=== PATIENT | female | born 1940 | race Caucasian/White ===

== ENCOUNTER 2022-03-09 12:04 | Day surgery (SDC) | payer MEDICARE ==
[2022-03-09] MEDS ORDERED: LIDOCAINE HCL 1% 50 MG/5 ML VL PF IJ ONE (12:05)
[2022-03-09] MEDS ORDERED: Depo-Medrol 40 MG/ML IM ONE (12:05)
[2022-03-09] MEDS ORDERED: BUPIVACAINE 0.5% VIAL IJ ONE (12:05)
--- NOTE | 2022-03-09 15:11 | XRAY ---
Indication: Left knee injection. Intraoperative fluoroscopy provided for 4 seconds. Single digital spot image submitted for interpretation demonstrates needle tip projecting over the left femur intracondylar notch. Small amount of contrast injected for needle tip placement. Correlate with intraoperative findings/report.
--- NOTE | 2022-03-09 15:12 | XRAY ---
Indication: Right knee injection. Intraoperative fluoroscopy provided for 9 seconds. Single digital spot image submitted for interpretation demonstrates needle tip projecting over the right femur intracondylar notch. Small amount of contrast injected for needle tip placement. Correlate with intraoperative findings/report.
--- NOTE | 2022-03-09 15:13 | XRAY ---
9 seconds of fluoroscopy was used in surgery for a right intra-articular knee injection.
--- NOTE | 2022-03-09 15:14 | XRAY ---
4 seconds of fluoroscopy was used in surgery for a left intra-articular knee injection.
== END 2022-03-09 14:40 | disposition home or self-care (01) ==
LOC: SDC-PAIN 12:04
PROVIDERS: ATTEND Psychiatry & Neurology Pain Medicine
DX: M17.0 Bilateral primary osteoarthritis of knee (principal); Z79.899 Other long term (current) drug therapy
CPT/HCPCS: 20610; 73560; 77002; J1030; J2001; Q9966

== ENCOUNTER 2022-10-07 12:45 | Emergency (ER) | payer MEDICARE ==
[2022-10-07 12:55] VITALS: TEMP 97.2
--- NOTE | 2022-10-07 14:14 | XRAY ---
Indication: Injury following fall. Comparison: None 3 view left elbow demonstrates 5 mm well-circumscribed heterotopic ossification posterior to olecranon process and mild focal posterior soft tissue swelling. No other bony, articular, or soft tissue abnormalities.
--- NOTE | 2022-10-07 14:16 | XRAY ---
Indication: Head injury following fall. Multiple contiguous axial images obtained through the head without contrast. Comparison: None Age-appropriate global atrophy, mild periventricular degenerative micro-ischemia bilaterally, and bilateral thalamic remote lacunar infarcts. No acute intracranial hemorrhage, abnormal extra axial fluid collection, or mass effect. Fourth ventricle is midline without hydrocephalus. Small right occipital scalp hematoma. Bony calvarium intact. Visualized paranasal sinuses and mastoid air cells are clear. Impression: 1. Right occipital scalp hematoma. No underlying fracture or acute intracranial abnormalities. 2. Chronic findings including atrophy, degenerative micro-ischemia, and bilateral thalamic remote lacunar infarcts.
--- NOTE | 2022-10-07 14:20 | XRAY ---
Indication: Neck pain and head injury following fall. Multiple contiguous axial images obtained through the cervical spine. Sagittal and coronal reformatted images obtained. Comparison: None Axial images negative for acute fracture, suspicious bony lesions, or spinal canal stenosis. Elsewhere osteopenia, moderate/advanced atlantoaxial degenerative changes, minimal/mild C4-C7 degenerative changes, and moderate multilevel bilateral degenerative facet arthropathy. Sagittal and coronal reformatted images demonstrates lordotic straightening, positional versus paraspinal spasm. Mild C5-C7 disc space narrowing. No acute compression fracture, subluxation, or jumped facet. Normal appearing craniocervical junction. Visualized noncontrasted soft tissues demonstrates mild scattered bilateral carotid calcifications. Lung apices clear. Impression: 1. Cervical lordotic straightening, positional versus paraspinal spasm. 2. Negative acute fracture/subluxation. 3. Chronic findings including osteopenia, multilevel degenerative spondylosis, and bilateral carotid calcifications.
[2022-10-07 14:27] VITALS: BP 149/70; PULSE 57; RESP 18; O2SAT 96
--- NOTE | 2022-10-07 14:44 | ERPHSYRPT ---
- History of Present Illness Time Seen by Provider: 10/07/22 12:55 Source: patient Exam Limitations: no limitations Patient Subjective Stated Complaint: PT states "I was stepping up on the curb and hit the back of my head and it hurts." Triage Nursing Assessment: Pt presented alert and oriented X 3, skin pwd. Pt ablet to speak in clear full sentences. PT has laceration noted to posterior head, abreasion noted to left elbow. PT has c spine on Physician History: Patient is a 82-year-old white female who slipped and fell in a parking lot when she attempted to step over a curb. She hit the back of her head but did not have any loss of consciousness she also abraded her left elbow. She is on Plavix as a blood thinner. She arrived by ambulance with a cervical collar in place Occurred: just prior to arrival Reason for Fall: tripped Injuries/Pain Location: head, upper extremity (Left elbow) Loss of Consciousness: no loss of consciousness Quality: aching Severity of Pain-Max: mild Severity of Pain-Current: mild Allergies/Adverse Reactions: No Known Drug Allergies Allergy (Verified 10/07/22 12:54) Home Medications: Gabapentin [Neurontin] 300 mg PO DAILY 10/07/22 [History] Hydrochlorothiazide 25 mg [hydroDIURIL 25 MG] 25 mg PO DAILY 10/07/22 [History] RX: Amlodipine Besylate 2.5 mg PO DAILY 10/07/22 [History] Hx Tetanus, Diphtheria Vaccination/Date Given: No Hx Influenza Vaccination/Date Given: No Hx Pneumococcal Vaccination/Date Given: No Immunizations Up to Date: No Travel Risk - International Travel Have you traveled outside of the country in past 3 weeks: No - Coronavirus Screening Are you exhibiting any of the following symptoms?: No Close contact with a COVID-19 positive Pt in past 14-21 Days: No - Vaccine Status Have you recieved a Covid-19 vaccination: No - Review of Systems Constitutional: No Fever, No Chills Eyes: No Symptoms Ears, Nose, & Throat: No Symptoms Respiratory: No Cough, No Dyspnea Cardiac: No Chest Pain, No Edema, No Syncope Abdominal/Gastrointestinal: No Abdominal Pain, No Nausea, No Vomiting, No Diarrhea Genitourinary Symptoms: No Dysuria Musculoskeletal: Joint Pain, Joint Swelling, No Back Pain, No Neck Pain Skin: No Rash Neurological: No Dizziness, No Focal Weakness, No Sensory Changes Psychological: No Symptoms Endocrine: No Symptoms All Other Systems: Reviewed and Negative - Past Medical History Pertinent Past Medical History: Yes Neurological History: Stroke, TIA Cardiac History: Hypertension Respiratory History: COPD Endocrine Medical History: Hypothyroidism Musculoskeletal History: Osteoarthritis Other Medical History: 3 TIA, 1 CVA, BREAST CA, RADICAL MASECTOMY. - Past Surgical History Past Surgical History: Yes Other Surgical History: left masectomy - Social History Smoking Status: Current every day smoker How long have you smoked: years Exposure to second hand smoke: Yes Drug Use: none Patient Lives Alone: Yes - Nursing Vital Signs Nursing Vital Signs: Initial Vital Signs Temperature 97.2 F 10/07/22 12:45 Pulse Rate 58 L 10/07/22 12:45 Respiratory Rate 20 10/07/22 12:45 Blood Pressure 172/75 10/07/22 12:45 O2 Sat by Pulse Oximetry 97 10/07/22 12:45 Pain Scale Pain Intensity 5 - [place] Coma Score Best Eye Response ([place]): (4) open spontaneously Best Verbal Response ([place]): (5) oriented Best Motor Response ([place]): (6) obeys commands [place] Total: 15 - Physical Exam General Appearance: mild distress, alert Head Injury: contusions (Occipital contusion and overlying abrasion) Eye Exam: PERRL/EOMI ENT Exam: airway nml Neck Exam: normal inspection, No tenderness Respiratory/Chest Exam: normal breath sounds, No chest tenderness, No respiratory distress Cardiovascular Exam: normal heart sounds, regular rate/rhythm Gastrointestinal Exam: soft, No tenderness, No distention, No guarding, No ecchymosis Back Exam: normal inspection, No vertebral tenderness Extremity Exam: normal inspection, normal range of motion, pelvis stable, other (Abrasion to the left elbow full range of motion), No deformities Neurologic Exam: alert, oriented x 3, cooperative, sensation nml, No motor deficits Skin Exam: normal color, warm, dry SpO2: 96 - Course Nursing assessment & vital signs reviewed: Yes - Radiology Exams Left Elbow X-ray Interpretation: Reviewed by me, Negative, Other - CT Exams Head CT Interpretation: Negative Cervical Spine CT Interpretation: Negative Ordered Tests: Active Orders 24 hr Category Date Time Status CERVICAL SPINE WO CONTRAST [CT] Stat Exams 10/07/22 12:50 Completed ELBOW (MINIMUM 3 VIEWS) Stat Exams 10/07/22 12:51 Completed HEAD WITHOUT CONTRAST [CT] Stat Exams 10/07/22 12:50 Completed - Progress Progress: improved Medical Desision Making - Diagnostic Testing Radiological Interpretation: Reviewed by me - Risk of complications Low Risk: Low risk of morbidity from additional dx testing or treatment - Departure Departure Disposition: Home Clinical Impression: Fall, Contusion of occipital region of scalp, Contusion of left elbow Condition: Stable Referrals: GRAY SCHULER MD [Primary Care Provider] - Follow up/PCP as directed Instructions: Contusion (DC), Preventing falls in adults Prescriptions: Hydrocodone/Acetaminophen [Hydrocodone-Acetamin 5-325 mg] 1 tab PO Q6HPRN PRN 3 Days #12 tablet MDD 4 PRN Reason: Pain
== END 2022-10-07 15:34 | disposition home or self-care (01) ==
LOC: ED 12:45
DX: S00.03XA Contusion of scalp, initial encounter (principal); S50.02XA Contusion of left elbow, initial encounter; W10.1XXA Fall (on)(from) sidewalk curb, initial encounter; Y92.481 Parking lot as the place of occurrence of the external cause; I10 Essential (primary) hypertension; Z79.02 Long term (current) use of antithrombotics/antiplatelets; Z79.891 Long term (current) use of opiate analgesic; Z79.899 Other long term (current) drug therapy; Z28.310 Unvaccinated for COVID-19; Z72.0 Tobacco use
CPT/HCPCS: 70450; 72125; 73080; 99283

== ENCOUNTER 2022-12-29 16:14 | Inpatient (IN) | payer MEDICARE ==
--- NOTE | 2022-12-29 16:20 | ERPHSYRPT ---
- History of Present Illness Time Seen by Provider: 12/29/22 16:20 Historian: patient, other (Outpatient radiographic study records) Exam Limitations: no limitations Physician History: This is an 82-year-old white female patient who was told to come to the emergency department by the office of Dr. Schuler because of abnormal finding on her CT scan of the abdomen pelvis that was ordered a week ago or so and was scheduled for earlier today. The CAT scan of the abdomen pelvis was interpreted by the radiologist and the impression reads abnormal prominent appendix with p eriappendiceal stranding worrisome for acute appendicitis. No complications. There is also small hiatal hernia colonic diverticulosis and arteriosclerotic disease without abdominal aortic aneurysm. The patient states that she does have pain in the right lower quadrant to palpation. Her pain was worse approximately 1 week ago then it improved. She denies nausea and vomiting. She has not had diarrhea. Patient reports that at approximately 4 PM, she had a couple of sips of orange juice but no solid food today. Timing/Duration: worse Allergies/Adverse Reactions: No Known Drug Allergies Allergy (Verified 12/29/22 16:36) Home Medications: Gabapentin [Neurontin] 300 mg PO TID 10/07/22 [History] Hydrochlorothiazide 25 mg [hydroDIURIL 25 MG] 25 mg PO DAILY 10/07/22 [History] Alendronate Sodium 70 mg [Fosamax 70 MG] 70 mg PO Q7D@0600 12/29/22 [History] Aspirin EC 81 mg [Ecotrin 81 mg] 81 mg PO DAILY 12/29/22 [History] Atorvastatin Calcium [Lipitor] 20 mg PO DAILY 12/29/22 [History] Bupropion HCl Xl 150 mg [Wellbutrin XL 150 MG] 300 mg PO DAILY 12/29/22 [History] Celecoxib 200 mg PO DAILY 12/29/22 [History] Clopidogrel Bisulfate [Clopidogrel] 75 mg PO DAILY 12/29/22 [History] Donepezil HCl [Aricept] 5 mg PO DAILY 12/29/22 [History] Enalapril Maleate 10 mg [Vasotec 10 MG] 20 mg PO BID 12/29/22 [History] Levothyroxine Sodium 150 Mcg [Synthroid 150 Mcg] 150 mcg PO DAILY 12/29/22 [History] Sertraline HCl [Zoloft] 100 mg PO DAILY 12/29/22 [History] atenoloL [Atenolol] 25 mg PO BID 12/29/22 [History] clonazePAM 0.5 mg PO TID PRN 12/29/22 [History] dilTIAZem HCL [Diltiazem 24Hr ER] 120 mg PO HS 12/29/22 [History] Hx Tetanus, Diphtheria Vaccination/Date Given: No Hx Influenza Vaccination/Date Given: No Hx Pneumococcal Vaccination/Date Given: No Travel Risk - Vaccine Status Have you recieved a Covid-19 vaccination: No - Past Medical History Pertinent Past Medical History: Yes Neurological History: Stroke, TIA Cardiac History: Hypertension Respiratory History: COPD Endocrine Medical History: Hypothyroidism Musculoskeletal History: Osteoarthritis Other Medical History: 3 TIA, 1 CVA, BREAST CA, RADICAL MASECTOMY. - Past Surgical History Past Surgical History: Yes Other Surgical History: left masectomy - Social History Smoking Status: Current every day smoker How long have you smoked: years Exposure to second hand smoke: Yes Drug Use: none Patient Lives Alone: Yes - Nursing Vital Signs Nursing Vital Signs: Initial Vital Signs Temperature 98.5 F 12/29/22 16:28 Pulse Rate 57 L 12/29/22 16:28 Respiratory Rate 18 12/29/22 16:28 Blood Pressure 148/66 12/29/22 16:28 O2 Sat by Pulse Oximetry 95 12/29/22 16:28 Pain Scale Pain Intensity 0 Ordered Tests: Active Orders 24 hr Category Date Time Status EKG-ER Only STAT Care 12/29/22 16:35 Active IV Insertion STAT Care 12/29/22 16:35 Active CBC W DIFF Stat Lab 12/29/22 16:40 Completed CMP Stat Lab 12/29/22 16:40 Completed Transfer Order Routine Transfer 12/29/22 Ordered Medication Summary Generic Name Dose Route Start Last Admin Trade Name Freq PRN Reason Stop Dose Admin Piperacillin Sod/Tazobactam 100 mls @ 200 mls/hr 12/29/22 17:56 Sod 3.375 gm/ Sodium Chloride IV 12/29/22 18:25 STAT ONE Discontinued Medications Generic Name Dose Route Start Last Admin Trade Name Freq PRN Reason Stop Dose Admin Hydromorphone HCl 0.5 mg 12/29/22 17:56 Hydromorphone 1 Mg/1ml Inj IV 12/29/22 17:57 STAT ONE Sodium Chloride 1,000 mls @ 999 mls/hr 12/29/22 16:35 12/29/22 16:40 Sodium Chloride 0.9% 1000 Ml IV 12/29/22 17:35 999 mls/hr .Q1H1M STA Administration Sodium Chloride Confirm 12/29/22 16:39 Sodium Chloride 0.9% 1000 Ml Administered 12/29/22 16:40 Dose 1,000 mls @ ud .ROUTE .STK-MED ONE Ondansetron HCl 4 mg 12/29/22 17:56 Ondansetron Hcl 4 Mg/2 Ml Vial IV 12/29/22 17:57 STAT ONE Lab/Rad Data: Laboratory Result Diagrams 12/29/22 16:40 12/29/22 16:40 Laboratory Results 12/29/22 12/29/22 Range/Units 16:40 16:40 WBC 7.2 (4.0-10.5) x10^3/uL RBC 3.78 L (4.1-5.4) x10^6/uL Hgb 11.9 L (12.0-16.0) g/dL Hct 36.0 (35-47) % MCV 95.2 (78-100) fL MCH 31.5 (26-32) pg MCHC 33.1 (32-36) g/dL RDW 12.2 (11.5-14.0) % Plt Count 307 (150-450) x10^3/uL MPV 11.2 H (7.5-11.0) fL Gran % 62.9 (36.0-66.0) % Immature Gran % (Auto) 0.4 (0.00-0.4) % Nucleat RBC Rel Count 0.0 (0.00-0.1) % Eos # (Auto) 0.16 (0-0.5) x10^3/uL Immature Gran # (Auto) 0.03 (0.00-0.03) x10^3u/L Absolute Lymphs (auto) 1.92 (1.0-4.6) x10^3/uL Absolute Monos (auto) 0.52 (0.0-1.3) x10^3/uL Absolute Nucleated RBC 0.00 (0.00-0.01) x10^3u/L Lymphocytes % 26.5 (24.0-44.0) % Monocytes % 7.2 (0.0-12.0) % Eosinophils % 2.2 (0.00-5.0) % Basophils % 0.8 (0.0-0.4) % Absolute Granulocytes 4.55 (1.4-6.9) x10^3/uL Basophils # 0.06 (0-0.4) x10^3/uL Sodium 141 (137-145) mmol/L Potassium 3.9 (3.5-5.1) mmol/L Chloride 106 (98-107) mmol/L Carbon Dioxide 26 (22-30) mmol/L Anion Gap 13.4 (5-15) MEQ/L BUN 27 H (7-17) mg/dL Creatinine 0.86 (0.52-1.04) mg/dL Estimated GFR 66.6 ML/MIN Glucose 106 (74-106) mg/dL Calcium 9.1 (8.4-10.2) mg/dL Total Bilirubin 0.50 (0.2-1.3) mg/dL AST 24 (14-36) U/L ALT 19 (0-35) U/L Alkaline Phosphatase 110 (38-126) U/L Serum Total Protein 7.5 (6.3-8.2) g/dL Albumin 4.2 (3.5-5.0) g/dL - Progress Progress: improved, pain not gone completely, re-examined Progress Note: 12/29/22 18:02 This patient's medical issue is 1 of moderate complexity. Level complex in the work-up performed is based on review of the patient's past medical history, review the patient's medication list, review the patient's drug allergy list, history of present illness and physical findings on examination. The work-up in this patient includes placement of intravenous line, infusion of 1 L normal saline solution, obtaining CBC, CMP, twelve-lead EKG. We will also provide the patient with 3.375 g of intravenous Zosyn, half a milligram of intravenous Dilaudid, 4 mg of intravenous Zofran. CAT scan of the abdomen pelvis was already performed as an outpatient and I reviewed the radiologist interpretation. I also reported the impression to Derrick Lara, general surgeon that is on-call at this time. I also reviewed the laboratory results with him. He will perform the surgery. However, he wishes the hospitalist to admit. I will call the telehospitalist on-call. 12/29/22 18:14 I spoke with the telehospitalist on-call at this time and it was Dr. Ferraro. He accepts the patient to be placed in observation. However, he did request that I put an order to call Dr. Ramirez or who will be taking over for him when the patient gets to the floor. Discussed with .: Sergey Counseled pt/family regarding: lab results, diagnosis, rad results Medical Desision Making - Discussion of managment Care discussed with:: specialist (General surgeon Dr. Derrick Lara) Reviewed:: Test results, Need for additional workup Agreed on:: place in obs - Diagnostic Testing Diagnostic test were ordered, analyzed, and reviewed by me: Yes Radiological Interpretation: Reviewed by me, Teleradiologist Report - Risk of complications The pt has a high risk of morbidity or mortality based on: Decision regarding hospitilization or escalation of hosp level of care - Departure Departure Disposition: Observation Clinical Impression: Acute appendicitis Condition: Stable Critical Care Time: No Referrals: GRAY SCHULER MD [Primary Care Provider] - Follow up/PCP as directed
[2022-12-29] MEDS ORDERED: Sodium Chloride 0.9% 1000 ML 1,000 ML IV STA (16:35)
[2022-12-29] MEDS ORDERED: Sodium Chloride 0.9% 1000 ML 1,000 ML ONE (16:39)
[2022-12-29 16:49] LABS: Absolute Neutrophil Ct (ANC) 4.55 x10^3/uL (1.4-6.9); BASOPHIL % 0.8 % (0.0-0.4); Basophil (Absolute #) 0.06 x10^3/uL (0-0.4); Eosinophil % 2.2 % (0.00-5.0); Eosinophil (Absolute #) 0.16 x10^3/uL (0-0.5); Hemoglobin 11.9 g/dL (12.0-16.0); IMMATURE GRAN # 0.03 x10^3u/L (0.00-0.03); IMMATURE GRAN % 0.4 % (0.00-0.4); Lymphocyte (Absolute #) 1.92 x10^3/uL (1.0-4.6); Lymphocytes % 26.5 % (24.0-44.0); Mean Cell Volume 95.2 fL (78-100); Mean Corpuscular Hemoglobin 31.5 pg (26-32); Mean Corpuscular Hgb Concent. 33.1 g/dL (32-36); Mean Platelet Volume 11.2 fL (7.5-11.0); Monocyte (Absolute #) 0.52 x10^3/uL (0.0-1.3); Monocytes % 7.2 % (0.0-12.0); Neutrophil % 62.9 % (36.0-66.0); Platelet Count 307 x10^3/uL (150-450); Red Blood Count 3.78 x10^6/uL (4.1-5.4); Red Cell Distribution Width 12.2 % (11.5-14.0); White Blood Count 7.2 x10^3/uL (4.0-10.5)
[2022-12-29 17:04] LABS: ALBUMIN 4.2 g/dL (3.5-5.0); ANION GAP 13.4 MEQ/L (5-15); BILIRUBIN,TOTAL 0.5 mg/dL (0.2-1.3); Calcium 9.1 mg/dL (8.4-10.2); Creatinine 1 0.86 mg/dL (0.52-1.04); EST GLOMERULAR FILTRATION RATE 66.6 ML/MIN; Potassium 3.9 mmol/L (3.5-5.1); Total Protein 7.5 g/dL (6.3-8.2)
[2022-12-29] MEDS ORDERED: Zofran 4 MG/2 ML VIAL IV ONE (17:56)
[2022-12-29] MEDS ORDERED: Hydromorphone 1 mg/ml Injection IV ONE (17:56)
[2022-12-29] MEDS ORDERED: PIPERACILLIN/TAZOBACTAM 3.375 GM in Sodium Chloride 100ML MINI-BAG PLUS 100 ML IV ONE (17:56)
[2022-12-29] MEDS ORDERED: Zofran 4 MG/2 ML VIAL ONE ×2 (18:17→19:07)
[2022-12-29] MEDS ORDERED: Hydromorphone 1 mg/ml Injection ONE (18:17)
[2022-12-29] MEDS ORDERED: PIPERACILLIN/TAZOBACTAM IV ONE (18:18)
[2022-12-29] MEDS ORDERED: Sodium Chloride 100ML MINI-BAG PLUS 100 ML IV ONE (18:19)
[2022-12-29] MEDS ORDERED: Sensorcaine 0.25% 10 ML ONE (18:39)
[2022-12-29] MEDS ORDERED: OFIRMEV 100 ML IV ONE (19:02)
[2022-12-29] MEDS ORDERED: Decadron 4 MG INJ ONE (19:07)
[2022-12-29] MEDS ORDERED: Xylocaine-Mpf 2% 5 Ml Vial ONE (19:07)
[2022-12-29] MEDS ORDERED: BRIDION 200MG/2ML IV ONE (19:07)
[2022-12-29] MEDS ORDERED: Zemuron 100 MG/10 ML ONE (19:07)
[2022-12-29] MEDS ORDERED: SUBLIMAZE 100 MCG/2 ML ONE ×2 (19:09→21:05)
[2022-12-29] MEDS ORDERED: Lactated Ringers 1,000 ML IV ONE ×2 (19:17→19:51)
[2022-12-29] MEDS ORDERED: DIPRIVAN 200 MG/20 ML IV ONE (19:25)
[2022-12-29] MEDS ORDERED: Pre-Attached Lta Kit TP ONE (19:29)
[2022-12-29] MEDS ORDERED: ATROPINE SULFATE 1MG ONE (19:43)
[2022-12-29] MEDS ORDERED: Ephedrine Sulfate 50 MG/ML ONE (19:47)
[2022-12-29] MEDS ORDERED: Reglan 10 MG/2 ML ONE (19:51)
[2022-12-29] MEDS ORDERED: Sodium Chloride 3 ML UD NEBULES IH ONE (21:00)
[2022-12-29] MEDS ORDERED: Xopenex 1.25 MG/0.5 ML UD NEBULE IH ONE (21:00)
[2022-12-29] MEDS ORDERED: Zofran 4 MG/2 ML VIAL IV PRN (22:08)
[2022-12-29] MEDS ORDERED: Lactated Ringers 1,000 ML IV SCH (22:30)
[2022-12-29] MEDS ORDERED: clonazePAM PO PRN (23:34)
[2022-12-29] MEDS ORDERED: TYLENOL 325 MG PO PRN (23:36)
[2022-12-29] MEDS ORDERED: Docusate Sodium 100 MG PO PRN (23:36)
[2022-12-30] MEDS: MORPHINE SULFATE 4 MG INJ IV PRN ×2 (00:07→05:09)
--- NOTE | 2022-12-30 00:17 | PCM.HP ---
History of Present Illness - Chief Complaint Chief Complaint: lap appy Date: 12/29/22 History of Present Illness: is a 82 year old female patient who was called back to the ED after a finding on abdominal CT ordered 1 week ago scheduled for completion earlier today, which revealed concerns for appendicitis. The patient had reported right lower quadrant abdominal pain which was worse in intensity 1 week ago and was improved, but persistent. There was no report of nausea, vomiting, diarrhea or fever. The patient was evaluated in the ED and underwent laparoscopic appendectomy, which revealed evidence of a perforation. The patient was evaluated on the med surg floor postoperatively. She is able to answer yes or no questions but is not able to offer meaningful history otherwise. - Review of Systems Constitutional: No Symptoms Eyes: No Symptoms Ears, Nose, & Throat: No Symptoms Respiratory: No Symptoms Cardiac: No Symptoms Abdominal/Gastrointestinal: Abdominal Pain Genitourinary Symptoms: No Symptoms Musculoskeletal: No Symptoms Skin: No Symptoms Neurological: No Symptoms Psychological: No Symptoms Endocrine: No Symptoms Hematologic/Lymphatic: No Symptoms Immunological/Allergic: No Symptoms All Other Systems: Reviewed and Negative Medications & Allergies Home Medications: Home Medication List Gabapentin [Neurontin] 300 mg PO TID 10/07/22 [History Confirmed 12/29/22] Hydrochlorothiazide 25 mg [hydroDIURIL 25 MG] 25 mg PO DAILY 10/07/22 [History Confirmed 12/29/22] Oxycodone HCl/Acetaminophen [Percocet 5-325 mg Tablet] 1 each PO Q6H 3 Days #12 tablet MDD 4 10/07/22 [Rx Confirmed 12/29/22] Alendronate Sodium 70 mg [Fosamax 70 MG] 70 mg PO Q7D@0600 12/29/22 [History Confirmed 12/29/22] Aspirin EC 81 mg [Ecotrin 81 mg] 81 mg PO DAILY 12/29/22 [History Confirmed 12/29/22] Atorvastatin Calcium [Lipitor] 20 mg PO DAILY 12/29/22 [History Confirmed 12/29/22] Bupropion HCl Xl 150 mg [Wellbutrin XL 150 MG] 300 mg PO DAILY 12/29/22 [History Confirmed 12/29/22] Celecoxib 200 mg PO DAILY 12/29/22 [History Confirmed 12/29/22] Clopidogrel Bisulfate [Clopidogrel] 75 mg PO DAILY 12/29/22 [History Confirmed 12/29/22] Donepezil HCl [Aricept] 5 mg PO DAILY 12/29/22 [History Confirmed 12/29/22] Enalapril Maleate 10 mg [Vasotec 10 MG] 20 mg PO BID 12/29/22 [History Confirmed 12/29/22] Levothyroxine Sodium 150 Mcg [Synthroid 150 Mcg] 150 mcg PO DAILY 12/29/22 [History Confirmed 12/29/22] Sertraline HCl [Zoloft] 100 mg PO DAILY 12/29/22 [History Confirmed 12/29/22] atenoloL [Atenolol] 25 mg PO BID 12/29/22 [History Confirmed 12/29/22] clonazePAM 0.5 mg PO TID PRN 12/29/22 [History Confirmed 12/29/22] dilTIAZem HCL [Diltiazem 24Hr ER] 120 mg PO HS 12/29/22 [History Confirmed 12/29/22] Allergies/Adverse Reactions: Allergies Allergy/AdvReac Type Severity Reaction Status Date / Time No Known Drug Allergies Allergy Verified 12/29/22 16:36 - Past Medical History Past Medical History: Yes Neurological History: Stroke, TIA Cardiac History: Hypertension Respiratory History: COPD Endocrine Medical History: Hypothyroidism Musculoskelatal History: Osteoarthritis Pyscho-Social History: Anxiety, Depression Comment: 3 TIA, 1 CVA, BREAST CA, RADICAL MASECTOMY. - Female History Are you now?: No - Past Surgical History Past Surgical History: Yes Neuro Surgical History: No Pertinent History Cardiac History: No Pertinent History Respiratory Surgery: No Pertinent History GI Surgical History: Appendectomy Genitourinary Surgical Hx: No Pertinent History Musculskeletal Surgical Hx: Orthopedic Surgery Female Surgical History: No Pertinent History Other Surgical History: left masectomy - Social History Smoking Status: Unknown if ever smoked How long have you smoked: years Exposure to second hand smoke: Yes Alcohol: None Drug Use: none - Physical Exam Vital Signs: Vital Signs - 24 hr Temp Pulse Resp BP BP BP Pulse Ox 12/29/22 23:15 55 L 19 141/63 98 12/29/22 22:45 98.0 F 57 L 18 148/57 98 12/29/22 22:15 55 L 20 141/63 98 12/29/22 22:00 97.1 F 63 20 139/67 95 12/29/22 21:00 61 18 96 12/29/22 18:16 98.5 F 78 18 133/63 95 12/29/22 17:30 78 18 147/70 12/29/22 17:14 60 18 133/63 95 12/29/22 17:09 133/63 95 12/29/22 17:08 95 12/29/22 16:28 98.5 F 57 L 18 148/66 95 General Appearance: no apparent distress Neurologic Exam: alert, oriented x 3, cooperative, pen ruler operator II-XII nml as tested, normal mood/affect Eye Exam: PERRL/EOMI, eyes nml inspection Ears, Nose, Throat Exam: normal ENT inspection Neck Exam: normal inspection, non-tender, full range of motion Respiratory Exam: normal breath sounds, lungs clear Cardiovascular Exam: regular rate/rhythm, normal heart sounds Gastrointestinal/Abdomen Exam: soft, other (decreased bowel sounds in left quadrants. RLQ not palpated, currently in dressing.) Back Exam: normal range of motion Extremity Exam: normal inspection, normal range of motion Skin Exam: normal color Results - Labs Lab/Micro Results: Lab Results-Last 24 Hours 12/29/22 12/29/22 Range/Units 16:40 16:40 WBC 7.2 (4.0-10.5) x10^3/uL RBC 3.78 L (4.1-5.4) x10^6/uL Hgb 11.9 L (12.0-16.0) g/dL Hct 36.0 (35-47) % MCV 95.2 (78-100) fL MCH 31.5 (26-32) pg MCHC 33.1 (32-36) g/dL RDW 12.2 (11.5-14.0) % Plt Count 307 (150-450) x10^3/uL MPV 11.2 H (7.5-11.0) fL Gran % 62.9 (36.0-66.0) % Immature Gran % (Auto) 0.4 (0.00-0.4) % Nucleat RBC Rel Count 0.0 (0.00-0.1) % Eos # (Auto) 0.16 (0-0.5) x10^3/uL Immature Gran # (Auto) 0.03 (0.00-0.03) x10^3u/L Absolute Lymphs (auto) 1.92 (1.0-4.6) x10^3/uL Absolute Monos (auto) 0.52 (0.0-1.3) x10^3/uL Absolute Nucleated RBC 0.00 (0.00-0.01) x10^3u/L Lymphocytes % 26.5 (24.0-44.0) % Monocytes % 7.2 (0.0-12.0) % Eosinophils % 2.2 (0.00-5.0) % Basophils % 0.8 (0.0-0.4) % Absolute Granulocytes 4.55 (1.4-6.9) x10^3/uL Basophils # 0.06 (0-0.4) x10^3/uL Sodium 141 (137-145) mmol/L Potassium 3.9 (3.5-5.1) mmol/L Chloride 106 (98-107) mmol/L Carbon Dioxide 26 (22-30) mmol/L Anion Gap 13.4 (5-15) MEQ/L BUN 27 H (7-17) mg/dL Creatinine 0.86 (0.52-1.04) mg/dL Estimated GFR 66.6 ML/MIN Glucose 106 (74-106) mg/dL Calcium 9.1 (8.4-10.2) mg/dL Total Bilirubin 0.50 (0.2-1.3) mg/dL AST 24 (14-36) U/L ALT 19 (0-35) U/L Alkaline Phosphatase 110 (38-126) U/L Serum Total Protein 7.5 (6.3-8.2) g/dL Albumin 4.2 (3.5-5.0) g/dL - Other Procedures and Tests Respiratory Therapy 12/29/22 21:38 Respiratory Therapy Assessment DAILY Assessment/Plan (1) Acute appendicitis Current Visit: Yes Status: Acute Assessment & Plan: s/p appendectomy, with noted perforation. On IV antibiotics. Dr. Lara following case. Holding antiplatet medications. Defer dietary advancement to surgery. Analgesia prn. Code(s): K35.80 - UNSPECIFIED ACUTE APPENDICITIS (2) Dementia Current Visit: Yes Status: Acute Assessment & Plan: Continue current regimen. SCDs for DVT prophylaxis. Mobilize with PT. Code(s): F03.90 - UNSP DEMENTIA, UNSP SEVERITY, WITHOUT BEH/PSYCH/MOOD/ANX (3) Hypertension Current Visit: Yes Status: Acute Assessment & Plan: Holding antiplatelet medications and enalapril per surgery request. Continuing regimen otherwise. Monitor BP. Code(s): I10 - ESSENTIAL (PRIMARY) HYPERTENSION Telemedicine Encounter - Telemedicine Encounter Telemedicine Encounter: The entirety of this encounter was performed via Telemedicine"
[2022-12-30 05:07] LABS: ANION GAP 12.3 MEQ/L (5-15); Calcium 8.3 mg/dL (8.4-10.2); Creatinine 1 0.74 mg/dL (0.52-1.04); EST GLOMERULAR FILTRATION RATE 79.7 ML/MIN; Potassium 4.3 mmol/L (3.5-5.1)
[2022-12-30 05:28] LABS: Absolute Neutrophil Ct (ANC) 9.34 x10^3/uL (1.4-6.9); BASOPHIL % 0.2 % (0.0-0.4); Basophil (Absolute #) 0.02 x10^3/uL (0-0.4); Eosinophil (Absolute #) 0 x10^3/uL (0-0.5); Hematocrit 34.6 % (35-47); Hemoglobin 11.1 g/dL (12.0-16.0); IMMATURE GRAN # 0.05 x10^3u/L (0.00-0.03); IMMATURE GRAN % 0.5 % (0.00-0.4); Lymphocyte (Absolute #) 0.75 x10^3/uL (1.0-4.6); Lymphocytes % 7.2 % (24.0-44.0); Mean Corpuscular Hemoglobin 31.4 pg (26-32); Mean Corpuscular Hgb Concent. 32.1 g/dL (32-36); Mean Platelet Volume 11.5 fL (7.5-11.0); Monocytes % 1.9 % (0.0-12.0); Neutrophil % 90.2 % (36.0-66.0); Platelet Count 260 x10^3/uL (150-450); Red Blood Count 3.53 x10^6/uL (4.1-5.4); Red Cell Distribution Width 12.5 % (11.5-14.0); White Blood Count 10.4 x10^3/uL (4.0-10.5)
--- NOTE | 2022-12-30 05:33 | PCM.NOTE ---
Date and Time: 12/30/22 0528 Subjective Assessment: is a 82 year old female patient who was called back to the ED after a finding on abdominal CT ordered 1 week ago scheduled for completion earlier today, which revealed concerns for appendicitis. The patient had reported right lower quadrant abdominal pain which was worse in intensity 1 week ago and was improved, but persistent. There was no report of nausea, vomiting, diarrhea or fever. The patient was evaluated in the ED and underwent laparoscopic appendectomy, which revealed evidence of a perforation. The patient was evaluated on the med surg floor postoperatively. She is able to answer yes or no questions but is not able to offer meaningful history otherwise. 12/30/22: Met and examined patient bedside. S/P lap appy PODS#1. Endorses abdominal pain at incision site 07/06 as well as some wheezing this morning which cleared with coughing per respiratory. CXR clear. Labs and vitals unremarkable. Upon examination, 3px and YASMEEN drain with no signs of erythema/drainage. Drain with about 20ml of sanguineous fluid. Patient advised to ambulate today. We will continue abx for now. Surgery to decide if drain will stay on d/c. Denies fever,cough, sob, cp, abdominal pain, BENNETT, dizziness, N/V/D. - Review of Systems Constitutional: No Symptoms Eyes: No Symptoms Ears, Nose, & Throat: No Symptoms Respiratory: Cough Cardiac: No Symptoms Abdominal/Gastrointestinal: Abdominal Pain (s/p lap appy 5/10) Genitourinary Symptoms: No Symptoms Musculoskeletal: No Symptoms Skin: Other (3px sites with YASMEEN drain) Neurological: No Symptoms Psychological: No Symptoms Endocrine: No Symptoms Objective Exam General Appearance: no apparent distress Neurologic Exam: alert, oriented x 3, cooperative Skin Exam: normal color Wound Assessment: Skin/Wound Assessment Wound/Incision Assessment Start: 12/29/22 22:37 Text: Status: Active Freq: Q6H Protocol: Document 12/30/22 02:00 LB (Rec: 12/30/22 03:09 LB [id number]) Wound/Incision Assessment Abdomen Wound Assessment Shift Assessment Wound Type Puncture Wound Stage Non Pressure Wound Dressing Status Drainage circled Drainage Amount Minimal Comment lap appy puncture wounds and YASMEEN drain Medial Abdomen Drain Type YASMEEN drain Drainage Description Sanguineous Wound Photo Photo Taken No Eye Exam: PERRL Ears, Nose, Throat Exam: normal ENT inspection Neck Exam: normal inspection Respiratory Exam: wheezing Cardiovascular Exam: regular rate/rhythm, normal heart sounds Gastrointestinal/Abdomen Exam: tenderness (BS x 4 quads 3px sites with YASMEEN drain) Extremity Exam: normal inspection Back Exam: normal inspection OBJECTIVE DATA Vital Signs: Vital Signs - 24 hr Temp Pulse Resp BP BP BP Pulse Ox 12/30/22 04:00 98.8 F 60 20 147/73 96 12/30/22 02:46 93 L 12/30/22 00:10 97.4 F 62 19 118/64 97 12/29/22 23:15 55 L 19 141/63 98 12/29/22 22:45 98.0 F 57 L 18 148/57 98 12/29/22 22:15 55 L 20 141/63 98 12/29/22 22:00 97.1 F 63 20 139/67 95 12/29/22 21:00 61 18 96 12/29/22 18:16 98.5 F 78 18 133/63 95 12/29/22 17:30 78 18 147/70 12/29/22 17:14 60 18 133/63 95 12/29/22 17:09 133/63 95 12/29/22 17:08 95 12/29/22 16:28 98.5 F 57 L 18 148/66 95 Pain Assessment - Last Documented Pain Intensity 9 Pain Scale Used 0-10 Pain Scale Intake and Output: Intake & Output 12/27/22 12/28/22 12/29/22 12/30/22 11:59 11:59 11:59 11:59 Weight 80.8 kg Lab Results: Lab Results-Last 24 Hours 12/29/22 12/29/22 12/30/22 Range/Units 16:40 16:40 04:42 WBC 7.2 (4.0-10.5) x10^3/uL RBC 3.78 L (4.1-5.4) x10^6/uL Hgb 11.9 L (12.0-16.0) g/dL Hct 36.0 (35-47) % MCV 95.2 (78-100) fL MCH 31.5 (26-32) pg MCHC 33.1 (32-36) g/dL RDW 12.2 (11.5-14.0) % Plt Count 307 (150-450) x10^3/uL MPV 11.2 H (7.5-11.0) fL Gran % 62.9 (36.0-66.0) % Immature Gran % (Auto) 0.4 (0.00-0.4) % Nucleat RBC Rel Count 0.0 (0.00-0.1) % Eos # (Auto) 0.16 (0-0.5) x10^3/uL Immature Gran # (Auto) 0.03 (0.00-0.03) x10^3u/L Absolute Lymphs (auto) 1.92 (1.0-4.6) x10^3/uL Absolute Monos (auto) 0.52 (0.0-1.3) x10^3/uL Absolute Nucleated RBC 0.00 (0.00-0.01) x10^3u/L Lymphocytes % 26.5 (24.0-44.0) % Monocytes % 7.2 (0.0-12.0) % Eosinophils % 2.2 (0.00-5.0) % Basophils % 0.8 (0.0-0.4) % Absolute Granulocytes 4.55 (1.4-6.9) x10^3/uL Basophils # 0.06 (0-0.4) x10^3/uL Sodium 141 137 (137-145) mmol/L Potassium 3.9 4.3 (3.5-5.1) mmol/L Chloride 106 106 (98-107) mmol/L Carbon Dioxide 26 24 (22-30) mmol/L Anion Gap 13.4 12.3 (5-15) MEQ/L BUN 27 H 21 H (7-17) mg/dL Creatinine 0.86 0.74 (0.52-1.04) mg/dL Estimated GFR 66.6 79.7 ML/MIN Glucose 106 171 H (74-106) mg/dL Calcium 9.1 8.3 L (8.4-10.2) mg/dL Total Bilirubin 0.50 (0.2-1.3) mg/dL AST 24 (14-36) U/L ALT 19 (0-35) U/L Alkaline Phosphatase 110 (38-126) U/L Serum Total Protein 7.5 (6.3-8.2) g/dL Albumin 4.2 (3.5-5.0) g/dL Assessment/Plan (1) Acute appendicitis Current Visit: Yes Status: Acute Assessment & Plan: s/p appendectomy, with noted perforation. On IV antibiotics. Dr. Lara following case. Holding antiplatet medications. Defer dietary advancement to surgery. Analgesia prn. 12/30: -ADAT, patient tolerating CLD this morning -Continue abx/pain control Code(s): K35.80 - UNSPECIFIED ACUTE APPENDICITIS (2) History of stroke Current Visit: Yes Status: Acute Assessment & Plan: Continue current regimen. SCDs for DVT prophylaxis. Mobilize with PT. Code(s): Z86.73 - PRSNL HX OF TIA (TIA), AND CEREB INFRC W/O RESID DEFICITS (3) Hypertension Current Visit: Yes Status: Acute Assessment & Plan: Holding antiplatelet medications and enalapril per surgery request. Continuing regimen otherwise. Monitor BP. Code(s): I10 - ESSENTIAL (PRIMARY) HYPERTENSION (4) Hypothyroid Current Visit: Yes Status: Acute Assessment & Plan: -continue home meds Code(s): E03.9 - HYPOTHYROIDISM, UNSPECIFIED (5) COPD (chronic obstructive pulmonary disease) Current Visit: Yes Status: Acute Assessment & Plan: -continue home medications, monitor for exacerbation (6) Dementia Current Visit: Yes Status: Acute Assessment & Plan: -noted, continue home medications Code(s): F03.90 - UNSP DEMENTIA, UNSP SEVERITY, WITHOUT BEH/PSYCH/MOOD/ANX
[2022-12-30] MEDS ORDERED: PIPERACILLIN/TAZOBACTAM IV ONE (06:26)
[2022-12-30] MEDS ORDERED: Sodium Chloride 100ML MINI-BAG PLUS 100 ML IV ONE (06:27)
[2022-12-30] MEDS: PIPERACILLIN/TAZOBACTAM 3.375 GM in Sodium Chloride 100ML MINI-BAG PLUS 100 ML IV SCH ×3 (06:39→21:55)
[2022-12-30] MEDS ORDERED: FEVERALL 650 MG RC PRN (07:13)
--- NOTE | 2022-12-30 07:51 | CONS ---
CONSULT DATE: 12/29/2022 REASON FOR CONSULT: Abdominal pain. HISTORY: This 82-year-old female presents after an outpatient CT scan for abdominal pain showing acute appendicitis. She was recommended to go to the emergency department for further treatment. The patient said she had pain in the right lower quadrant for about ten days. She had used a heating pad for three days in a row and the pain had gotten quite a bit better and was not really particularly bad. She had an outpatient CT scan that was set up by her primary care doctor for this pain. She denies any chest pain, shortness of breath, fevers, chills or prior episodes. REVIEW OF SYSTEMS: No chest pain or shortness of breath. PAST MEDICAL HISTORY: Significant for chronic obstructive pulmonary disease, hypertension, hypothyroidism, CVA and transient ischemic attack on Plavix. PAST SURGICAL HISTORY: Significant for mastectomy for breast cancer. Bilateral knee replacement. Bilateral hip surgery. MEDICATIONS: Medications reviewed, see MAR, including Plavix. ALLERGIES: NKDA. SOCIAL HISTORY: Positive for tobacco. FAMILY HISTORY: Noncontributory. PHYSICAL EXAMINATION: GENERAL: No acute distress. HEENT: Sclera nonicteric. Extraocular movements intact. NECK: Supple. No JVD. CHEST: Nonlabored breathing. ABDOMEN: Soft, nondistended, focally tender in the right lower quadrant with guarding. EXTREMITIES: No peripheral edema. NEURO: Awake, alert, oriented. PSYCH: Appropriate mood and affect. ASSESSMENT: Acute appendicitis. PLAN: Plan for laparoscopic possible open appendectomy. Risks and benefits of surgery discussed in depth with the patient including risk of bleeding, infection; risk of bowel or bladder, organ injury. Alternative to surgery such as antibiotic therapy were discussed as well as recurrent appendicitis or worsening appendicitis with perforation. The patient would like to proceed with surgery. She is at increased risk with being on Plavix. I have reviewed CT scan images which showed a dilated appendix with some periappendiceal stranding consistent with nonperforated appendicitis. I have reviewed CBC, CMP and the emergency department note. I discussed the case with the emergency department physician.
--- NOTE | 2022-12-30 08:16 | OP ---
SURGERY DATE/TIME: 12/29/20221926 PREOPERATIVE DIAGNOSIS: Acute appendicitis. POSTOPERATIVE DIAGNOSIS: Acute perforated appendicitis with abscess. PROCEDURE: Laparoscopic appendectomy. SURGEON: Derrick Lara M.D. ANESTHESIA: General. ESTIMATED BLOOD LOSS: 5 cc. COMPLICATIONS: None. SPECIMEN: Appendix. FINDINGS: Perforated appendicitis with a walled off abscess on the right lower quadrant. INDICATION: This patient presents with signs and symptoms and CT scan evidence of acute appendicitis. She had a CT scan done as an outpatient which showed appendicitis and was directed to go to the emergency department. After discussing the risks and benefits of surgery the patient wished to proceed. DESCRIPTION OF PROCEDURE: The patient was brought to the operating room, placed supine on operating table, placed under general anesthesia. The abdomen was prepped and draped in sterile fashion. Incision made at the umbilicus. Blunt dissection performed down to the fascia. The fascia lifted up with clamp. Veress needle inserted. Pneumoperitoneum obtained. A 5 mm optical trocar inserted under direct visualization and abdomen was entered. Area on entry was inspected. There did not appear to be any inadvertent injury. Additional 5 mm suprapubic and 12 mm trocars were placed. The patient positioned. The cecum is plastered to the right anterolateral abdominal wall with inflammatory process and loop of small bowel stuck quite viciously down here. The small bowel had to be pried off and use the scissors to sharply dissect off this loop of bowel that was stuck here and then using blunt dissection I was able to dissect the cecum and appendix off of the abdominal wall. Once opening the space we entered an abscess cavity. There is quite a bit of pus in this localized area of peritonitis, this is suctioned out. There is minimal contamination to the abdomen. There was quite a raw surface. Eventually after cleaning this up and mobilizing the cecum a little more away from the abdominal wall and getting the TI out of the way, we could visualize the appendix. We created a window between the base of the appendix and the mesoappendix and then transected the base with 45 white EndoGIA stapler. The rest of the mesoappendix was then transected with the LigaSure. Appendix removed in its entirety. The area was irrigated and suctioned dry. The area was actually quite hemostatic despite her being on Plavix. A drain was placed in the suprapubic trocar into the right gutter. The 12 port was closed with 0 Vicryl suture. The suprapubic trocar was removed. The wounds were closed with 4-0 Vicryl sutures. Drain sutured in place. Dressings applied. The patient recovered and taken to PACU in stable condition.
[2022-12-30] MEDS: VENTOLIN COMMON CANISTER IH PRN (09:22)
--- NOTE | 2022-12-30 09:46 | XRAY ---
Indication: Short of breath and wheezing. Comparison: July 09, 2015 Portable chest inflated and clear. Heart now borderline enlarged. Stable tiny left hilar calcified granulomas. Bony thorax intact again with osteopenia, mild degenerative changes, left mastectomy, and left axillary jose dissection. Impression: Nonacute chest with chronic features.
[2022-12-30] MEDS ORDERED: [UNRECOGNIZED DRUG - REMARK] PO SCH (10:00)
[2022-12-30] MEDS ORDERED: ZOCOR 20MG PO SCH (10:00)
[2022-12-30] MEDS ORDERED: Zocor 10MG PO SCH (10:00)
[2022-12-30] MEDS: SYNTHROID 150 MCG PO SCH (10:06)
[2022-12-30] MEDS: NEURONTIN PO SCH ×3 (10:06→21:55)
[2022-12-30] MEDS: hydroDIURIL 25 MG PO SCH (10:06)
[2022-12-30] MEDS: ZOLOFT 50 MG TABLET PO SCH (10:07)
[2022-12-30] MEDS: TENORMIN 50 MG PO SCH ×2 (10:15→21:55)
[2022-12-30] MEDS: Aricept 10 MG PO SCH (10:16)
[2022-12-30] MEDS: NORCO 7.5/325 MG TAB PO PRN ×3 (10:17→19:40)
[2022-12-30] MEDS: Protonix 40MG Tablet PO SCH (10:17)
[2022-12-30] MEDS: Wellbutrin XL 150 MG PO SCH (10:18)
[2022-12-30 10:49] LABS: Appearance Clear (Clear); Bacteria None Seen /HPF (None Seen); Bilirubin Negative (Negative); Blood Negative (Negative); Epithelial Cells Few /HPF (None Seen); Glucose, Urine Negative (Negative); Hyaline Casts NONE SEEN /LPF (0-2); Ketones Negative (Negative); Leukocyte Esterase Negative (Negative); Nitrite Negative (Negative); Ph 5.5 (4.6-8.0); Protein,Urine Dip Negative (Negative); RBC 0-2 /HPF (0-5); Specific Gravity 1.015 (1.005-1.030); Urobilinogen 0.2 mg/dL (0.2); WBC 0-2 /HPF (0-5)
[2022-12-30 10:50] LABS: ADD URINE CULTURE? NO (NO)
[2022-12-30] MEDS ORDERED: PERCOCET TABLET 5/325MG PO SCH (12:00)
--- NOTE | 2022-12-30 16:30 | PCM.CONS ---
Podiatry HPI - Consult Consulting Provider: FRANCES CATES DPM - HPI History of Present Illness: 82 year old female with PMHx of CHF, Medications & Allergies Home Medications: Home Medication List Gabapentin [Neurontin] 300 mg PO TID 10/07/22 [History Confirmed 12/29/22] Hydrochlorothiazide 25 mg [hydroDIURIL 25 MG] 25 mg PO DAILY 10/07/22 [History Confirmed 12/29/22] Oxycodone HCl/Acetaminophen [Percocet 5-325 mg Tablet] 1 each PO Q6H 3 Days #12 tablet MDD 4 10/07/22 [Rx Confirmed 12/29/22] Alendronate Sodium 70 mg [Fosamax 70 MG] 70 mg PO Q7D@0600 12/29/22 [History Confirmed 12/29/22] Aspirin EC 81 mg [Ecotrin 81 mg] 81 mg PO DAILY 12/29/22 [History Confirmed 12/29/22] Atorvastatin Calcium [Lipitor] 20 mg PO DAILY 12/29/22 [History Confirmed 12/29/22] Bupropion HCl Xl 150 mg [Wellbutrin XL 150 MG] 300 mg PO DAILY 12/29/22 [History Confirmed 12/29/22] Celecoxib 200 mg PO DAILY 12/29/22 [History Confirmed 12/29/22] Clopidogrel Bisulfate [Clopidogrel] 75 mg PO DAILY 12/29/22 [History Confirmed 12/29/22] Donepezil HCl [Aricept] 5 mg PO DAILY 12/29/22 [History Confirmed 12/29/22] Enalapril Maleate 10 mg [Vasotec 10 MG] 20 mg PO BID 12/29/22 [History Confirmed 12/29/22] Levothyroxine Sodium 150 Mcg [Synthroid 150 Mcg] 150 mcg PO DAILY 12/29/22 [History Confirmed 12/29/22] Sertraline HCl [Zoloft] 100 mg PO DAILY 12/29/22 [History Confirmed 12/29/22] atenoloL [Atenolol] 25 mg PO BID 12/29/22 [History Confirmed 12/29/22] clonazePAM 0.5 mg PO TID PRN 12/29/22 [History Confirmed 12/29/22] dilTIAZem HCL [Diltiazem 24Hr ER] 120 mg PO HS 12/29/22 [History Confirmed 12/29/22] Allergies/Adverse Reactions: Allergies Allergy/AdvReac Type Severity Reaction Status Date / Time No Known Drug Allergies Allergy Verified 12/29/22 16:36 - Past Medical History Past Medical History: Yes Neurological History: Stroke, TIA Cardiac History: Hypertension Respiratory History: COPD Endocrine Medical History: Hypothyroidism Musculoskelatal History: Osteoarthritis Pyscho-Social History: Anxiety, Depression Comment: 3 TIA, 1 CVA, BREAST CA, RADICAL MASECTOMY. - Female History Are you now?: No - Past Surgical History Past Surgical History: Yes Neuro Surgical History: No Pertinent History Cardiac History: No Pertinent History Respiratory Surgery: No Pertinent History GI Surgical History: Appendectomy Genitourinary Surgical Hx: No Pertinent History Musculskeletal Surgical Hx: Orthopedic Surgery Female Surgical History: No Pertinent History Other Surgical History: left masectomy - Social History Smoking Status: Unknown if ever smoked How long have you smoked: years Exposure to second hand smoke: Yes Alcohol: None Drug Use: none Physical Exam - Narrative Narrative Physical Exam: Podiatry Physical Exam Results - Labs Lab/Micro Results: Lab Results-Last 24 Hours 12/29/22 12/29/22 12/30/22 Range/Units 16:40 16:40 04:42 WBC 7.2 (4.0-10.5) x10^3/uL RBC 3.78 L (4.1-5.4) x10^6/uL Hgb 11.9 L (12.0-16.0) g/dL Hct 36.0 (35-47) % MCV 95.2 (78-100) fL MCH 31.5 (26-32) pg MCHC 33.1 (32-36) g/dL RDW 12.2 (11.5-14.0) % Plt Count 307 (150-450) x10^3/uL MPV 11.2 H (7.5-11.0) fL Gran % 62.9 (36.0-66.0) % Immature Gran % (Auto) 0.4 (0.00-0.4) % Nucleat RBC Rel Count 0.0 (0.00-0.1) % Eos # (Auto) 0.16 (0-0.5) x10^3/uL Immature Gran # (Auto) 0.03 (0.00-0.03) x10^3u/L Absolute Lymphs (auto) 1.92 (1.0-4.6) x10^3/uL Absolute Monos (auto) 0.52 (0.0-1.3) x10^3/uL Absolute Nucleated RBC 0.00 (0.00-0.01) x10^3u/L Lymphocytes % 26.5 (24.0-44.0) % Monocytes % 7.2 (0.0-12.0) % Eosinophils % 2.2 (0.00-5.0) % Basophils % 0.8 (0.0-0.4) % Absolute Granulocytes 4.55 (1.4-6.9) x10^3/uL Basophils # 0.06 (0-0.4) x10^3/uL Sodium 141 137 (137-145) mmol/L Potassium 3.9 4.3 (3.5-5.1) mmol/L Chloride 106 106 (98-107) mmol/L Carbon Dioxide 26 24 (22-30) mmol/L Anion Gap 13.4 12.3 (5-15) MEQ/L BUN 27 H 21 H (7-17) mg/dL Creatinine 0.86 0.74 (0.52-1.04) mg/dL Estimated GFR 66.6 79.7 ML/MIN Glucose 106 171 H (74-106) mg/dL Calcium 9.1 8.3 L (8.4-10.2) mg/dL Total Bilirubin 0.50 (0.2-1.3) mg/dL AST 24 (14-36) U/L ALT 19 (0-35) U/L Alkaline Phosphatase 110 (38-126) U/L Serum Total Protein 7.5 (6.3-8.2) g/dL Albumin 4.2 (3.5-5.0) g/dL Urine Color (Yellow) Urine Appearance (Clear) Urine pH (4.6-8.0) Ur Specific [place] (1.005-1.030) Urine Protein (Negative) Urine Glucose (UA) (Negative) mg/dL Urine Ketones (Negative) Urine Blood (Negative) Urine Nitrite (Negative) Urine Bilirubin (Negative) Urine Urobilinogen (0.2) mg/dL Ur Leukocyte Esterase (Negative) U Hyaline Cast (Auto) (0-2) /LPF Urine Microscopic RBC (0-5) /HPF Urine Microscopic WBC (0-5) /HPF Ur Epithelial Cells (None Seen) /HPF Urine Bacteria (None Seen) /HPF Urine Culture Reflexed (NO) 12/30/22 12/30/22 Range/Units 05:00 10:37 WBC 10.4 (4.0-10.5) x10^3/uL RBC 3.53 L (4.1-5.4) x10^6/uL Hgb 11.1 L (12.0-16.0) g/dL Hct 34.6 L (35-47) % MCV 98.0 (78-100) fL MCH 31.4 (26-32) pg MCHC 32.1 (32-36) g/dL RDW 12.5 (11.5-14.0) % Plt Count 260 (150-450) x10^3/uL MPV 11.5 H (7.5-11.0) fL Gran % 90.2 H (36.0-66.0) % Immature Gran % (Auto) 0.5 H (0.00-0.4) % Nucleat RBC Rel Count 0.0 (0.00-0.1) % Eos # (Auto) 0 (0-0.5) x10^3/uL Immature Gran # (Auto) 0.05 H (0.00-0.03) x10^3u/L Absolute Lymphs (auto) 0.75 L (1.0-4.6) x10^3/uL Absolute Monos (auto) 0.20 (0.0-1.3) x10^3/uL Absolute Nucleated RBC 0.00 (0.00-0.01) x10^3u/L Lymphocytes % 7.2 L (24.0-44.0) % Monocytes % 1.9 (0.0-12.0) % Eosinophils % 0.0 (0.00-5.0) % Basophils % 0.2 (0.0-0.4) % Absolute Granulocytes 9.34 H (1.4-6.9) x10^3/uL Basophils # 0.02 (0-0.4) x10^3/uL Sodium (137-145) mmol/L Potassium (3.5-5.1) mmol/L Chloride (98-107) mmol/L Carbon Dioxide (22-30) mmol/L Anion Gap (5-15) MEQ/L BUN (7-17) mg/dL Creatinine (0.52-1.04) mg/dL Estimated GFR ML/MIN Glucose (74-106) mg/dL Calcium (8.4-10.2) mg/dL Total Bilirubin (0.2-1.3) mg/dL AST (14-36) U/L ALT (0-35) U/L Alkaline Phosphatase (38-126) U/L Serum Total Protein (6.3-8.2) g/dL Albumin (3.5-5.0) g/dL Urine Color Yellow (Yellow) Urine Appearance Clear (Clear) Urine pH 5.5 (4.6-8.0) Ur Specific [place] 1.015 (1.005-1.030) Urine Protein Negative (Negative) Urine Glucose (UA) Negative (Negative) mg/dL Urine Ketones Negative (Negative) Urine Blood Negative (Negative) Urine Nitrite Negative (Negative) Urine Bilirubin Negative (Negative) Urine Urobilinogen 0.2 (0.2) mg/dL Ur Leukocyte Esterase Negative (Negative) U Hyaline Cast (Auto) NONE SEEN (0-2) /LPF Urine Microscopic RBC 0-2 (0-5) /HPF Urine Microscopic WBC 0-2 (0-5) /HPF Ur Epithelial Cells Few (None Seen) /HPF Urine Bacteria None Seen (None Seen) /HPF Urine Culture Reflexed NO (NO) - Radiology Impressions Radiology Exams & Impressions: Radiology Procedures Category Date Time Status CHEST 1 VIEW (PORTABLE) Stat Exams 12/30/22 08:48 Completed - Other Procedures and Tests Respiratory Therapy 12/29/22 21:38 Respiratory Therapy Assessment DAILY 12/30/22 02:45 Oxygen Nasal Cannula 2 lpm 12/30/22 08:52 Incentive Spirometry TID
[2022-12-30] MEDS: Cardizem CD PO SCH (21:55)
[2022-12-30] MEDS ORDERED: NORCO 5/325 MG PO PRN (22:10)
[2022-12-31] MEDS: NORCO 7.5/325 MG TAB PO PRN (04:01)
[2022-12-31] MEDS: VENTOLIN COMMON CANISTER IH PRN ×2 (04:42→23:42)
--- NOTE | 2022-12-31 05:12 | PCM.NOTE ---
Date and Time: 12/31/22 0511 Subjective Assessment: is a 82 year old female patient who was called back to the ED after a finding on abdominal CT ordered 1 week ago scheduled for completion earlier today, which revealed concerns for appendicitis. The patient had reported right lower quadrant abdominal pain which was worse in intensity 1 week ago and was improved, but persistent. There was no report of nausea, vomiting, diarrhea or fever. The patient was evaluated in the ED and underwent laparoscopic appendectomy, which revealed evidence of a perforation. The patient was evaluated on the med surg floor postoperatively. She is able to answer yes or no questions but is not able to offer meaningful history otherwise. 12/30/22: Met and examined patient bedside. S/P lap appy PODS#1. Endorses abdominal pain at incision site 5/10 as well as some wheezing this morning which cleared with coughing per respiratory. CXR clear. Labs and vitals unremarkable. Upon examination, 3px and YASMEEN drain with no signs of erythema/drainage. Drain with about 20ml of sanguineous fluid. Patient advised to ambulate today. We will continue abx for now. Surgery to decide if drain will stay on d/c. Denies fever,cough, sob, cp, abdominal pain, BENNETT, dizziness, N/V/D. 12/31: Patient examined bedside. S/P lap appy PODS#2. Endorses continued wheezing as well as pain at incision site 5/10 this morning. Per RN she has been having some confusion. Patient states "I have trouble finding my words since taking the pain medications." She is A&O x 3, having difficulties remembering how to empty the YASMEEN drain despite multiple attempts with demonstration. Patient states she does not feel ready for discharge today. Plan is to continue abx -switch to oral augmentin, try to downgrade pain meds if she is able to tolerate. Re-evaluate tomorrow for discharge. - Review of Systems Constitutional: No Symptoms Eyes: No Symptoms Ears, Nose, & Throat: No Symptoms Respiratory: Cough, Wheezing Cardiac: No Symptoms Abdominal/Gastrointestinal: Abdominal Pain (at incision site) Genitourinary Symptoms: No Symptoms Musculoskeletal: No Symptoms Skin: Other (3 px sites/YASMEEN drain ) Neurological: No Symptoms Psychological: Other (mild confusion) Endocrine: No Symptoms Hematologic/Lymphatic: No Symptoms Immunological/Allergic: No Symptoms Objective Exam General Appearance: no apparent distress Neurologic Exam: alert, oriented x 3, cooperative, confusion (mild) Skin Exam: normal color Wound Assessment: Skin/Wound Assessment Wound/Incision Assessment Start: 12/29/22 22:37 Text: Status: Active Freq: Q6H Protocol: Document 12/31/22 02:00 AB (Rec: 12/31/22 02:22 AB [id number]) Wound/Incision Assessment Abdomen Wound Assessment Shift Assessment Wound Type Puncture Wound Stage Non Pressure Wound Dressing Status Drainage circled Drainage Amount Minimal Drainage Description Serosanguineous Drainage Odor None/Absent Primary Dressing Gauze Pads Comment lap appy puncture wounds and YASMEEN drain Medial Abdomen Drain Type YASMEEN drain Drainage Description Serosanguineous Odor None/Absent Wound Photo Photo Taken No Eye Exam: PERRL Ears, Nose, Throat Exam: normal ENT inspection Neck Exam: normal inspection Respiratory Exam: normal breath sounds, lungs clear, wheezing (heard inititally, cleared with cough) Cardiovascular Exam: regular rate/rhythm, normal heart sounds Gastrointestinal/Abdomen Exam: soft, normal bowel sounds, tenderness (at incision site 3 px/YASMEEN drain CDI) Extremity Exam: normal inspection OBJECTIVE DATA Vital Signs: Vital Signs - 24 hr Temp Pulse Resp BP BP BP Pulse Ox 12/31/22 04:42 132 H 24 92 L 12/31/22 04:00 96.8 F 134 H 26 H 154/89 91 L 12/31/22 00:00 97.6 F 71 20 114/56 91 L 12/30/22 21:55 70 12/30/22 19:54 97.0 F 72 22 147/69 93 L 12/30/22 19:17 60 18 96 12/30/22 16:00 97.3 F 61 18 143/60 89 L 12/30/22 11:44 97.5 F 57 L 17 120/58 89 L 12/30/22 10:15 54 L 123/63 12/30/22 10:00 96 12/30/22 09:29 81 20 92 L 12/30/22 06:55 95 12/30/22 06:54 97.0 F 80 18 154/65 95 Pain Assessment - Last Documented Pain Intensity 6 Pain Scale Used 0-10 Pain Scale Intake and Output: Intake & Output 12/28/22 12/29/22 12/30/22 12/31/22 11:59 11:59 11:59 11:59 Intake Total 200 Output Total 200 940 Balance -200 -740 Weight 80.8 kg Lab Results: Lab Results-Last 24 Hours 12/30/22 12/30/22 Range/Units 05:00 10:37 WBC 10.4 (4.0-10.5) x10^3/uL RBC 3.53 L (4.1-5.4) x10^6/uL Hgb 11.1 L (12.0-16.0) g/dL Hct 34.6 L (35-47) % MCV 98.0 (78-100) fL MCH 31.4 (26-32) pg MCHC 32.1 (32-36) g/dL RDW 12.5 (11.5-14.0) % Plt Count 260 (150-450) x10^3/uL MPV 11.5 H (7.5-11.0) fL Gran % 90.2 H (36.0-66.0) % Immature Gran % (Auto) 0.5 H (0.00-0.4) % Nucleat RBC Rel Count 0.0 (0.00-0.1) % Eos # (Auto) 0 (0-0.5) x10^3/uL Immature Gran # (Auto) 0.05 H (0.00-0.03) x10^3u/L Absolute Lymphs (auto) 0.75 L (1.0-4.6) x10^3/uL Absolute Monos (auto) 0.20 (0.0-1.3) x10^3/uL Absolute Nucleated RBC 0.00 (0.00-0.01) x10^3u/L Lymphocytes % 7.2 L (24.0-44.0) % Monocytes % 1.9 (0.0-12.0) % Eosinophils % 0.0 (0.00-5.0) % Basophils % 0.2 (0.0-0.4) % Absolute Granulocytes 9.34 H (1.4-6.9) x10^3/uL Basophils # 0.02 (0-0.4) x10^3/uL Urine Color Yellow (Yellow) Urine Appearance Clear (Clear) Urine pH 5.5 (4.6-8.0) Ur Specific [place] 1.015 (1.005-1.030) Urine Protein Negative (Negative) Urine Glucose (UA) Negative (Negative) mg/dL Urine Ketones Negative (Negative) Urine Blood Negative (Negative) Urine Nitrite Negative (Negative) Urine Bilirubin Negative (Negative) Urine Urobilinogen 0.2 (0.2) mg/dL Ur Leukocyte Esterase Negative (Negative) U Hyaline Cast (Auto) NONE SEEN (0-2) /LPF Urine Microscopic RBC 0-2 (0-5) /HPF Urine Microscopic WBC 0-2 (0-5) /HPF Ur Epithelial Cells Few (None Seen) /HPF Urine Bacteria None Seen (None Seen) /HPF Urine Culture Reflexed NO (NO) Radiology Exams: Radiology Procedures Category Date Time Status CHEST 1 VIEW (PORTABLE) Stat Exams 12/30/22 08:48 Completed Multi-Disciplinary Progress Notes: Multi-Disciplinary Progress Notes 12/30/22 11:08 Case Management Note by Arelis Foster S/W [facility]CO- THEY REPORT PATIENT CARES FOR HERSELF AT HOME. SHE DOES HAVE SOME MEMORY ISSUES. 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 PATY CHECKS ON PATIENT MORE THAN MONTHLY. THEY REPORTS THEY HAVE TRIED TO GET PATIENT TO PR BEFORE AND SHE HAS REFUSED SHE DOGS AT HOME SHE CARES FOR. S/W PATIENT AGAIN ABOUT PLANS- SHE CONTINUES TO PLAN TO DC HOME AT TIME OF DC, SHE IS A&O X3. SHE HAS MADE APPROPRIATE JOKES. SHE REPORTS SHE FEELS ABLE TO CARE FOR HERSELF AT HOME. SHE AGAIN IS REFUSING THE NEED FOR A REHAB STAY AT THIS TIME. [facility] HAS BEEN SET AND PATY FROM [facility] WILL CONTINUE TO CHECK ON PATIENT. ORDER ENTERED FOR PATIENT TO START EMYPTING YASMEEN DRAIN WITH NURSE SUPERVISION TO BE SURE SHE IS ABLE TO DO SO INCASE SHE DCS HOME BY HERSELF Initialized on 12/30/22 11:08 - END OF NOTE 12/30/22 10:34 Case Management Note by Arelis Foster PATIENT REPORTED SHE HAS HHC AND THAT PATY IN ACO SETS UP HER MEDS. S/W PATY- SHE REPORTS PATIENT HAD [facility] UNTIL END OF NOVEMBER THEN THEY DCD PATIENT. PATY REPORTS SHE WOULD BENEFIT FROM HAVING THEM BACK AGAIN. [facility] S[facility]. THEY WILL NEED NOTIFIED AT TIME OF DC AT [phone]. THEY WILL NEED FAXED THE DC INSTRUCTIONS, DC MED LIST AND DC SUMMARY TO [phone] Initialized on 12/30/22 10:34 - END OF NOTE Assessment/Plan (1) Acute appendicitis Current Visit: Yes Status: Acute Assessment & Plan: s/p appendectomy, with noted perforation. On IV antibiotics. Dr. Lara following case. Holding antiplatet medications. Defer dietary advancement to surgery. Analgesia prn. 12/30: -ADAT, patient tolerating CLD this morning -Continue abx/pain control 12/31: -Tolerating diet, ambulating well, YASMEEN drain with mod drainage -ABX- change to augmentin -Downgrade pain meds to ibuprofen/tylenol Code(s): K35.80 - UNSPECIFIED ACUTE APPENDICITIS (2) History of stroke Current Visit: Yes Status: Acute Assessment & Plan: Continue current regimen. SCDs for DVT prophylaxis. Mobilize with PT. Code(s): Z86.73 - PRSNL HX OF TIA (TIA), AND CEREB INFRC W/O RESID DEFICITS (3) Hypertension Current Visit: Yes Status: Acute Assessment & Plan: Holding antiplatelet medications and enalapril per surgery request. Continuing regimen otherwise. Monitor BP. Code(s): I10 - ESSENTIAL (PRIMARY) HYPERTENSION (4) Hypothyroid Current Visit: Yes Status: Acute Assessment & Plan: -continue home meds Code(s): E03.9 - HYPOTHYROIDISM, UNSPECIFIED (5) COPD (chronic obstructive pulmonary disease) Current Visit: Yes Status: Acute Assessment & Plan: -continue home medications, monitor for exacerbation (6) Dementia Current Visit: Yes Status: Acute Assessment & Plan: -noted, continue home medications Code(s): K35.80 - UNSPECIFIED ACUTE APPENDICITIS (2) History of stroke Current Visit: Yes Status: Acute Code(s): Z86.73 - PRSNL HX OF TIA (TIA), AND CEREB INFRC W/O RESID DEFICITS (3) Hypertension Current Visit: Yes Status: Acute Code(s): I10 - ESSENTIAL (PRIMARY) HYPERTENSION (4) Hypothyroid Current Visit: Yes Status: Acute Code(s): E03.9 - HYPOTHYROIDISM, UNSPECIFIED (5) COPD (chronic obstructive pulmonary disease) Current Visit: Yes Status: Acute (6) Dementia Current Visit: Yes Status: Acute Code(s): F03.90 - UNSP DEMENTIA, UNSP SEVERITY, WITHOUT BEH/PSYCH/MOOD/ANX
[2022-12-31] MEDS: PIPERACILLIN/TAZOBACTAM 3.375 GM in Sodium Chloride 100ML MINI-BAG PLUS 100 ML IV SCH (05:38)
[2022-12-31 05:50] LABS: Absolute Neutrophil Ct (ANC) 5.09 x10^3/uL (1.4-6.9); BASOPHIL % 0.7 % (0.0-0.4); Basophil (Absolute #) 0.05 x10^3/uL (0-0.4); Eosinophil % 1.1 % (0.00-5.0); Eosinophil (Absolute #) 0.08 x10^3/uL (0-0.5); Hematocrit 32.8 % (35-47); Hemoglobin 10.7 g/dL (12.0-16.0); IMMATURE GRAN # 0.02 x10^3u/L (0.00-0.03); IMMATURE GRAN % 0.3 % (0.00-0.4); Lymphocyte (Absolute #) 1.75 x10^3/uL (1.0-4.6); Lymphocytes % 23.3 % (24.0-44.0); Mean Cell Volume 96.8 fL (78-100); Mean Corpuscular Hemoglobin 31.6 pg (26-32); Mean Corpuscular Hgb Concent. 32.6 g/dL (32-36); Mean Platelet Volume 11.4 fL (7.5-11.0); Monocyte (Absolute #) 0.53 x10^3/uL (0.0-1.3); Neutrophil % 67.6 % (36.0-66.0); Platelet Count 241 x10^3/uL (150-450); Red Blood Count 3.39 x10^6/uL (4.1-5.4); Red Cell Distribution Width 12.9 % (11.5-14.0); White Blood Count 7.5 x10^3/uL (4.0-10.5)
[2022-12-31 06:05] LABS: ANION GAP 10.9 MEQ/L (5-15); Calcium 8.6 mg/dL (8.4-10.2); Creatinine 1 1.1 mg/dL (0.52-1.04); EST GLOMERULAR FILTRATION RATE 49.6 ML/MIN; Potassium 3.7 mmol/L (3.5-5.1)
[2022-12-31] MEDS: NEURONTIN PO SCH ×3 (10:57→21:53)
[2022-12-31] MEDS: Zocor 10MG PO SCH (10:57)
[2022-12-31] MEDS: SYNTHROID 150 MCG PO SCH (10:57)
[2022-12-31] MEDS: Aricept 10 MG PO SCH (10:58)
[2022-12-31] MEDS: ZOLOFT 50 MG TABLET PO SCH (10:58)
[2022-12-31] MEDS: Protonix 40MG Tablet PO SCH (11:00)
[2022-12-31] MEDS: hydroDIURIL 25 MG PO SCH (11:01)
[2022-12-31] MEDS: Wellbutrin XL 150 MG PO SCH (11:04)
[2022-12-31] MEDS: TENORMIN 50 MG PO SCH ×2 (11:09→21:53)
[2022-12-31] MEDS: MOTRIN 400 MG PO PRN ×2 (13:06→21:53)
[2022-12-31] MEDS: Augmentin 875-125 Tablet PO SCH ×2 (13:06→21:57)
[2022-12-31] MEDS ORDERED: Dulcolax 10 MG SUPP PR ONE (17:26)
[2022-12-31] MEDS: Cardizem CD PO SCH (21:53)
[2023-01-01 06:03] LABS: Absolute Neutrophil Ct (ANC) 6.28 x10^3/uL (1.4-6.9); BASOPHIL % 0.7 % (0.0-0.4); Basophil (Absolute #) 0.07 x10^3/uL (0-0.4); Eosinophil % 3.9 % (0.00-5.0); Eosinophil (Absolute #) 0.37 x10^3/uL (0-0.5); Hematocrit 35.6 % (35-47); Hemoglobin 11.7 g/dL (12.0-16.0); IMMATURE GRAN # 0.05 x10^3u/L (0.00-0.03); IMMATURE GRAN % 0.5 % (0.00-0.4); Lymphocyte (Absolute #) 2.14 x10^3/uL (1.0-4.6); Lymphocytes % 22.3 % (24.0-44.0); Mean Corpuscular Hemoglobin 31.5 pg (26-32); Mean Corpuscular Hgb Concent. 32.9 g/dL (32-36); Mean Platelet Volume 11.1 fL (7.5-11.0); Monocyte (Absolute #) 0.69 x10^3/uL (0.0-1.3); Monocytes % 7.2 % (0.0-12.0); Neutrophil % 65.4 % (36.0-66.0); Platelet Count 296 x10^3/uL (150-450); Red Blood Count 3.71 x10^6/uL (4.1-5.4); Red Cell Distribution Width 12.7 % (11.5-14.0); White Blood Count 9.6 x10^3/uL (4.0-10.5)
[2023-01-01 06:41] LABS: ANION GAP 12.9 MEQ/L (5-15); Calcium 9.2 mg/dL (8.4-10.2); Creatinine 1 0.97 mg/dL (0.52-1.04); EST GLOMERULAR FILTRATION RATE 57.6 ML/MIN; Potassium 4.1 mmol/L (3.5-5.1)
[2023-01-01] MEDS: VENTOLIN COMMON CANISTER IH PRN (07:16)
[2023-01-01 07:24] VITALS: RESP 20
[2023-01-01 08:08] VITALS: TEMP 97.5
--- NOTE | 2023-01-01 09:15 | PCM.DS ---
Discharge Summary Date of Admission: 12/29/22 21:34 Date of Discharge: 01/01/23 Admitting Physician: BRAD DELGADO MD Consults: Consults on Case 12/29/22 23:38 Consult Surgery ROUTINE Primary Care Provider: GRAY SCHULER Allergies Allergies No Known Drug Allergies Allergy (Verified 12/29/22 16:36) Hospital Summary - Hospital Course Hospital Course: is a 82 year old female patient who was called back to the ED after a finding on abdominal CT ordered 1 week ago scheduled for completion earlier today, which revealed concerns for appendicitis. The patient had reported right lower quadrant abdominal pain which was worse in intensity 1 week ago and was improved, but persistent. There was no report of nausea, vomiting, diarrhea or fever. The patient was evaluated in the ED and underwent laparoscopic appendectomy, which revealed evidence of a perforation. During hospital course patient received IV zosyn and then oral - Vitals & Intake/Output Vital Signs: Vital Signs Temperature 97.5 F 01/01/23 07:00 Pulse Rate 66 01/01/23 07:18 Respiratory Rate 20 01/01/23 07:18 Blood Pressure 154/68 01/01/23 07:00 O2 Sat by Pulse Oximetry 94 L 01/01/23 07:18 Intake & Output: Intake & Output 12/29/22 12/30/22 12/31/22 01/01/23 11:59 11:59 11:59 10:59 Intake Total 200 920 Output Total 200 1570 1380 Balance -200 -1370 -460 Weight 80.8 kg - Lab Result Diagrams: 01/01/23 05:55 01/01/23 05:55 Lab Results-Last 24 Hrs: Lab Results-Last 24 Hours 01/01/23 01/01/23 Range/Units 05:55 05:55 WBC 9.6 (4.0-10.5) x10^3/uL RBC 3.71 L (4.1-5.4) x10^6/uL Hgb 11.7 L (12.0-16.0) g/dL Hct 35.6 (35-47) % MCV 96.0 (78-100) fL MCH 31.5 (26-32) pg MCHC 32.9 (32-36) g/dL RDW 12.7 (11.5-14.0) % Plt Count 296 (150-450) x10^3/uL MPV 11.1 H (7.5-11.0) fL Gran % 65.4 (36.0-66.0) % Immature Gran % (Auto) 0.5 H (0.00-0.4) % Nucleat RBC Rel Count 0.0 (0.00-0.1) % Eos # (Auto) 0.37 (0-0.5) x10^3/uL Immature Gran # (Auto) 0.05 H (0.00-0.03) x10^3u/L Absolute Lymphs (auto) 2.14 (1.0-4.6) x10^3/uL Absolute Monos (auto) 0.69 (0.0-1.3) x10^3/uL Absolute Nucleated RBC 0.00 (0.00-0.01) x10^3u/L Lymphocytes % 22.3 L (24.0-44.0) % Monocytes % 7.2 (0.0-12.0) % Eosinophils % 3.9 (0.00-5.0) % Basophils % 0.7 (0.0-0.4) % Absolute Granulocytes 6.28 (1.4-6.9) x10^3/uL Basophils # 0.07 (0-0.4) x10^3/uL Sodium 138 (137-145) mmol/L Potassium 4.1 (3.5-5.1) mmol/L Chloride 103 (98-107) mmol/L Carbon Dioxide 27 (22-30) mmol/L Anion Gap 12.9 (5-15) MEQ/L BUN 22 H (7-17) mg/dL Creatinine 0.97 (0.52-1.04) mg/dL Estimated GFR 57.6 ML/MIN Glucose 122 H (74-106) mg/dL Calcium 9.2 (8.4-10.2) mg/dL - Procedures and Test Procedures and Tests throughout Hospitalization: Therapy Orders & Screens 12/29/22 21:38 Respiratory Therapy Assessment DAILY Comment: 12/29/22 23:36 PT Eval & Treat ( Order) ONCE Reason for Eval:: debility Diagnosis: steve appy 12/30/22 02:45 Oxygen Nasal Cannula 2 lpm Comment: Diagnosis: lap appy 12/30/22 08:52 Incentive Spirometry TID Comment: Diagnosis: lap appy Discharge Exam Wound Assessment: Skin/Wound Assessment Wound/Incision Assessment Start: 12/29/22 22:37 Text: Status: Active Freq: Q6H Protocol: Document 01/01/23 01:00 EST AB (Rec: 01/01/23 01:37 EST AB [id number]) Wound/Incision Assessment Abdomen Wound Assessment Shift Assessment Wound Type Incision Primary Dressing Gauze Pads Comment lap appy laparoscopic incisions and YASMEEN drain Medial Abdomen Drain Type YASMEEN drain Drainage Description Serous Odor None/Absent Wound Photo Photo Taken No Final Diagnosis/Problem List - Final Discharge Diagnosis/Problem (1) Acute appendicitis Current Visit: Yes Status: Acute Code(s): K35.80 - UNSPECIFIED ACUTE APPENDICITIS (2) History of stroke Current Visit: Yes Status: Acute Code(s): Z86.73 - PRSNL HX OF TIA (TIA), AND CEREB INFRC W/O RESID DEFICITS (3) Hypertension Current Visit: Yes Status: Acute Code(s): I10 - ESSENTIAL (PRIMARY) HYPERTENSION (4) Hypothyroid Current Visit: Yes Status: Acute Code(s): E03.9 - HYPOTHYROIDISM, UNSPECIFIED (5) COPD (chronic obstructive pulmonary disease) Current Visit: Yes Status: Acute (6) Dementia Current Visit: Yes Status: Acute Code(s): F03.90 - UNSP DEMENTIA, UNSP SEVERITY, WITHOUT BEH/PSYCH/MOOD/ANX - Discharge Disposition: Home, Self-Care Condition: Stable Prescriptions: No Action Hydrochlorothiazide 25 mg [hydroDIURIL 25 MG] 25 mg PO DAILY Gabapentin [Neurontin] 300 mg PO TID Oxycodone HCl/Acetaminophen [Percocet 5-325 mg Tablet] 1 each PO Q6H 3 Days #12 tablet MDD 4 Alendronate Sodium 70 mg [Fosamax 70 MG] 70 mg PO Q7D@0600 Aspirin EC 81 mg [Ecotrin 81 mg] 81 mg PO DAILY atenoloL [Atenolol] 25 mg PO BID Atorvastatin Calcium [Lipitor] 20 mg PO DAILY Bupropion HCl Xl 150 mg [Wellbutrin XL 150 MG] 300 mg PO DAILY Celecoxib 200 mg PO DAILY clonazePAM 0.5 mg PO TID PRN PRN Reason: Anxiety Clopidogrel Bisulfate [Clopidogrel] 75 mg PO DAILY dilTIAZem HCL [Diltiazem 24Hr ER] 120 mg PO HS Donepezil HCl [Aricept] 5 mg PO DAILY Enalapril Maleate 10 mg [Vasotec 10 MG] 20 mg PO BID Levothyroxine Sodium 150 Mcg [Synthroid 150 Mcg] 150 mcg PO DAILY Sertraline HCl [Zoloft] 100 mg PO DAILY Additional Instructions: [facility] THEY WILL CALL YOU TO ARRANGE A VISIT. THEIR PHONE NUMBER IS [phone] IF YOU NEED ANYTHING BEFORE THEY CONTACT YOU. Follow up with: GRAY SCHULER MD [Primary Care Provider] - 01/13/23 3:30 pm ERICKSON RODGERS MD [ACTIVE STAFF] - 01/09/23 11:20 am (at th office )
--- NOTE | 2023-01-01 10:24 | PCM.DS ---
Discharge Summary Date of Admission: 12/29/22 21:34 Date of Discharge: 01/01/23 Admitting Physician: BRAD DELGADO MD Consults: Consults on Case 12/29/22 23:38 Consult Surgery ROUTINE Primary Care Provider: GRAY SCHULER Allergies Allergies No Known Drug Allergies Allergy (Verified 12/29/22 16:36) Hospital Summary - Hospital Course Hospital Course: Subjective Assessment: is a 82 year old female patient who was called back to the ED after a finding on abdominal CT ordered 1 week ago scheduled for completion earlier today, which revealed concerns for appendicitis. The patient had reported right lower quadrant abdominal pain which was worse in intensity 1 week ago and was improved, but persistent. There was no report of nausea, vomiting, diarrhea or fever. The patient was evaluated in the ED and underwent laparoscopic appendectomy, which revealed evidence of a perforation. During hospital course patient initially received IV zosyn and now on po augmentin. She has been wheezing throughout her stay, she states she is unable to tolerate DuoNebs, and does not have an inhaler at home. She does have a history of COPD, cxr clear. She will discharge home on prednisone for 5 days and symbicort with advisement for close follow up with PCP. Patient did perform walk test to see if she would need home oxygen, but does not qualify. She has been on RA during her stay with spo2 @ 94%. Patient did experience some confusion with narcotics during hospital course. Her pain has been relieved with Tylenol, no need to send home on narcotic. Drain to be pulled prior to discharge per surgery with close follow up. Discharge Note New Diagnosis: Acute appendicitis/COPD exacerbation New Medications: Augmentin, prednisone/ symbicort Follow Up: PCP/Surgery Latest Assessment & Plan s/p appendectomy, with noted perforation. On IV antibiotics. Dr. Lara following case. Holding antiplatet medications. Defer dietary advancement to surgery. Analgesia prn. 12/30: -ADAT, patient tolerating CLD this morning -Continue abx/pain control 12/31: -Tolerating diet, ambulating well, YASMEEN drain with mod drainage -ABX- change to augmentin -Downgrade pain meds to ibuprofen/tylenol Code(s): K35.80 - UNSPECIFIED ACUTE APPENDICITIS (2) History of stroke Current Visit: Yes Status: Acute Assessment & Plan: Continue current regimen. SCDs for DVT prophylaxis. Mobilize with PT. Code(s): Z86.73 - PRSNL HX OF TIA (TIA), AND CEREB INFRC W/O RESID DEFICITS (3) Hypertension Current Visit: Yes Status: Acute Assessment & Plan: Holding antiplatelet medications and enalapril per surgery request. Continuing regimen otherwise. Monitor BP. Code(s): I10 - ESSENTIAL (PRIMARY) HYPERTENSION (4) Hypothyroid Current Visit: Yes Status: Acute Assessment & Plan: -continue home meds Code(s): E03.9 - HYPOTHYROIDISM, UNSPECIFIED (5) COPD (chronic obstructive pulmonary disease) Current Visit: Yes Status: Acute Assessment & Plan: -continue home medications, monitor for exacerbation 01/01: -Wheezing on exam, will send home on prednisone/symbicort/Augmentin -CXR clear (6) Dementia Current Visit: Yes Status: Acute Assessment & Plan: -noted, continue home medications Code(s): K35.80 - UNSPECIFIED ACUTE APPENDICITIS I spent 35 minutes [id number] with the patient on the day of discharge performing discharge exam, discussing hospital stay and discharge instructions with patient and caregivers, preparation of discharge records, prescriptions & referral forms and addressing any questions/concerns the patient had as documented above. - Vitals & Intake/Output Vital Signs: Vital Signs Temperature 97.5 F 01/01/23 07:00 Pulse Rate 66 01/01/23 07:18 Respiratory Rate 20 01/01/23 07:18 Blood Pressure 154/68 01/01/23 07:00 O2 Sat by Pulse Oximetry 94 L 01/01/23 07:18 Intake & Output: Intake & Output 12/29/22 12/30/22 12/31/22 01/01/23 11:59 11:59 11:59 10:59 Intake Total 200 920 Output Total 200 1570 1380 Balance -200 -1370 -460 Weight 80.8 kg - Lab Result Diagrams: 01/01/23 05:55 01/01/23 05:55 Lab Results-Last 24 Hrs: Lab Results-Last 24 Hours 01/01/23 01/01/23 Range/Units 05:55 05:55 WBC 9.6 (4.0-10.5) x10^3/uL RBC 3.71 L (4.1-5.4) x10^6/uL Hgb 11.7 L (12.0-16.0) g/dL Hct 35.6 (35-47) % MCV 96.0 (78-100) fL MCH 31.5 (26-32) pg MCHC 32.9 (32-36) g/dL RDW 12.7 (11.5-14.0) % Plt Count 296 (150-450) x10^3/uL MPV 11.1 H (7.5-11.0) fL Gran % 65.4 (36.0-66.0) % Immature Gran % (Auto) 0.5 H (0.00-0.4) % Nucleat RBC Rel Count 0.0 (0.00-0.1) % Eos # (Auto) 0.37 (0-0.5) x10^3/uL Immature Gran # (Auto) 0.05 H (0.00-0.03) x10^3u/L Absolute Lymphs (auto) 2.14 (1.0-4.6) x10^3/uL Absolute Monos (auto) 0.69 (0.0-1.3) x10^3/uL Absolute Nucleated RBC 0.00 (0.00-0.01) x10^3u/L Lymphocytes % 22.3 L (24.0-44.0) % Monocytes % 7.2 (0.0-12.0) % Eosinophils % 3.9 (0.00-5.0) % Basophils % 0.7 (0.0-0.4) % Absolute Granulocytes 6.28 (1.4-6.9) x10^3/uL Basophils # 0.07 (0-0.4) x10^3/uL Sodium 138 (137-145) mmol/L Potassium 4.1 (3.5-5.1) mmol/L Chloride 103 (98-107) mmol/L Carbon Dioxide 27 (22-30) mmol/L Anion Gap 12.9 (5-15) MEQ/L BUN 22 H (7-17) mg/dL Creatinine 0.97 (0.52-1.04) mg/dL Estimated GFR 57.6 ML/MIN Glucose 122 H (74-106) mg/dL Calcium 9.2 (8.4-10.2) mg/dL - Procedures and Test Procedures and Tests throughout Hospitalization: Therapy Orders & Screens 12/29/22 21:38 Respiratory Therapy Assessment DAILY Comment: 12/29/22 23:36 PT Eval & Treat (MD Order) ONCE Reason for Eval:: debility Diagnosis: [facility] 12/30/22 02:45 Oxygen Nasal Cannula 2 lpm Comment: Diagnosis: [facility] 12/30/22 08:52 Incentive Spirometry TID Comment: Diagnosis: [employer] app Discharge Exam General Appearance: no apparent distress Neurologic Exam: alert, oriented x 3, cooperative Eye Exam: PERRL Ears, Nose, Throat Exam: normal ENT inspection Neck Exam: normal inspection Respiratory Exam: wheezing Cardiovascular Exam: regular rate/rhythm, normal heart sounds Gastrointestinal/Abdomen Exam: soft, normal bowel sounds, other (3 px sites CDI) Pelvic Exam: deferred Rectal Exam: deferred Back Exam: normal inspection Extremity Exam: normal inspection Wound Assessment: Skin/Wound Assessment Wound/Incision Assessment Start: 12/29/22 22:37 Text: Status: Active Freq: Q6H Protocol: Document 01/01/23 07:00 SHEILAIVORY (Rec: 01/01/23 10:03 [facility] [id number]) Wound/Incision Assessment Abdomen Wound Assessment Shift Assessment Wound Type Incision Primary Dressing Gauze Pads Comment [facility] laparoscopic incisions and YASMEEN drain Medial Abdomen Drain Type YASMEEN drain Drainage Description Serous Wound Photo Photo Taken No Final Diagnosis/Problem List - Final Discharge Diagnosis/Problem (1) Acute appendicitis Current Visit: Yes Status: Resolved Code(s): K35.80 - UNSPECIFIED ACUTE APPENDICITIS (2) History of stroke Current Visit: Yes Status: Chronic Code(s): Z86.73 - PRSNL HX OF TIA (TIA), AND CEREB INFRC W/O RESID DEFICITS (3) Hypertension Current Visit: Yes Status: Chronic Code(s): I10 - ESSENTIAL (PRIMARY) HYPERTENSION (4) Hypothyroid Current Visit: Yes Status: Chronic Code(s): E03.9 - HYPOTHYROIDISM, UNSPECIFIED (5) COPD (chronic obstructive pulmonary disease) Current Visit: Yes Status: Chronic (6) Dementia Current Visit: Yes Status: Chronic Code(s): F03.90 - UNSP DEMENTIA, UNSP SEVERITY, WITHOUT BEH/PSYCH/MOOD/ANX - Discharge Disposition: Home, Self-Care Condition: Stable Prescriptions: New Amox Tr/Potass Clav. 875 mg [Augmentin 875-125 Tablet] 875 mg PO Q12HT 7 Days #14 tablet Prednisone 20 mg [Deltasone 20 mg] 20 mg PO BID 5 Days #10 tablet Albuterol Common Canister [Ventolin Common Canister] 2 puff IH Q4H PRN PRN 30 Days #1 inh PRN Reason: Shortness Of Breath/Wheezing Continue Hydrochlorothiazide 25 mg [hydroDIURIL 25 MG] 25 mg PO DAILY Gabapentin [Neurontin] 300 mg PO TID Oxycodone HCl/Acetaminophen [Percocet 5-325 mg Tablet] 1 each PO Q6H 3 Days #12 tablet MDD 4 Alendronate Sodium 70 mg [Fosamax 70 MG] 70 mg PO Q7D@0600 Aspirin EC 81 mg [Ecotrin 81 mg] 81 mg PO DAILY atenoloL [Atenolol] 25 mg PO BID Atorvastatin Calcium [Lipitor] 20 mg PO DAILY Bupropion HCl Xl 150 mg [Wellbutrin XL 150 MG] 300 mg PO DAILY Celecoxib 200 mg PO DAILY clonazePAM 0.5 mg PO TID PRN PRN Reason: Anxiety Clopidogrel Bisulfate [Clopidogrel] 75 mg PO DAILY dilTIAZem HCL [Diltiazem 24Hr ER] 120 mg PO HS Donepezil HCl [Aricept] 5 mg PO DAILY Enalapril Maleate 10 mg [Vasotec 10 MG] 20 mg PO BID Levothyroxine Sodium 150 Mcg [Synthroid 150 Mcg] 150 mcg PO DAILY Sertraline HCl [Zoloft] 100 mg PO DAILY Additional Instructions: [facility] THEY WILL CALL YOU TO ARRANGE A VISIT. THEIR PHONE NUMBER IS [phone] IF YOU NEED ANYTHING BEFORE THEY CONTACT YOU. Follow up with: GRAY SCHULER MD [Primary Care Provider] - 01/13/23 3:30 pm ERICKSON LARA MD [ACTIVE STAFF] - 01/09/23 11:20 am (at th office )
[2023-01-01] MEDS: Protonix 40MG Tablet PO SCH (10:30)
[2023-01-01] MEDS: NEURONTIN PO SCH (10:30)
[2023-01-01] MEDS: ZOLOFT 50 MG TABLET PO SCH (10:30)
[2023-01-01] MEDS: Aricept 10 MG PO SCH (10:30)
[2023-01-01] MEDS: TENORMIN 50 MG PO SCH (10:31)
[2023-01-01] MEDS: hydroDIURIL 25 MG PO SCH (10:31)
[2023-01-01] MEDS: SYNTHROID 150 MCG PO SCH (10:31)
[2023-01-01] MEDS: Zocor 10MG PO SCH (10:41)
[2023-01-01] MEDS: Wellbutrin XL 150 MG PO SCH (10:42)
[2023-01-01] MEDS: Augmentin 875-125 Tablet PO SCH (10:42)
[2023-01-01] MEDS ORDERED: DELTASONE 20 MG PO ONE (10:45)
[2023-01-01 12:23] VITALS: BP 139/56; PULSE 63; O2SAT 95
[2023-01-05] MEDS ORDERED: Fosamax 70 MG PO SCH (06:00)
== END 2023-01-01 11:44 | disposition home or self-care (01) | DRG 399 ==
LOC: ED 16:14 → OBSVTOIN 21:34 → MED SURG 21:34
PROVIDERS: ADMIT Internal Medicine; ATTEND Internal Medicine
PROC: 0DTJ4ZZ Resection of Appendix, Percutaneous Endoscopic Approach (ICD-10-PCS; principal; 2022-12-29)
DX: K35.80 Unspecified acute appendicitis (principal); K35.33 Acute appendicitis with perforation, localized peritonitis, and gangrene, with abscess; Z86.73 Personal history of transient ischemic attack (TIA), and cerebral infarction without residual deficits; I10 Essential (primary) hypertension; E03.9 Hypothyroidism, unspecified; J44.9 Chronic obstructive pulmonary disease, unspecified; F03.90 Unspecified dementia, unspecified severity, without behavioral disturbance, psychotic disturbance, mood disturbance, and anxiety; Z79.01 Long term (current) use of anticoagulants; Z79.899 Other long term (current) drug therapy; Z20.828 Contact with and (suspected) exposure to other viral communicable diseases; Z85.3 Personal history of malignant neoplasm of breast
CPT/HCPCS: 00840; 36000; 36415; 44970; 71045; 80048; 80053; 81001; 85025; 93005; 94640; 94760; 96360; 96374; 96375; 97161; 99100; 99140; 99284; Q3014; 74176; J0461; J1100; J1170; J2270; J2405; J2704; J3010; J7614; A9270-GY

== ENCOUNTER 2025-01-01 11:54 | Observation (INO) | payer MEDICARE ==
--- NOTE | 2025-01-01 12:30 | ERPHSYRPT ---
- History of Present Illness Patient Subjective Stated Complaint: PT STATES SHE WAS SENT HERE FOR HER HEART TO BE CHECKED OUT Triage Nursing Assessment: PT ARRIVES TO THE ED WITH A NURSE FROM DR. GRIFFIN OFFICE. PT IS WHEELED IN A WHEELCHAIR BUT IS ABLE TO TRANSFER TO THE ER COT WITH HER CANE. PT IS ALERT AND ORIENTED X4, EXHIBITS SHORTNESS OF BREATH WITH EXERTION, PULSES PRESENT AND EQUAL BILATERALLY. PT STATES SHE HAS FELT "CRAPPY" FOR A FEW MONTHS. PT STATES SHE HAS NOT HAD THE MOTIVATION TO GET OUT OF BED, COOK FOOD, OR DO HER REGULAR ACTIVITES. STATES SHE FEELS LIKE SHE IS "JUST GOING TO [place]." PT WAS SEEN AT A NORMAL APPOINTMENT TODAY WITH DOCTOR MADDIE WHO SENT HER HERE TO MAKE SURE SHE WAS NOT GOING IN AND OUT OF AFIB. PT STATES SHE IS MORE EXHUASTED THAN NORMAL RECENTLY. PT DENIES ANY CHEST PAIN, FEVER, NAUSEA/VOMITING/DIARRHEA. PT STATES THAT HER RIGHT LEG SWELLS. Physician History: From cardiology office, the patient has not felt well over the last several weeks, but the patient is a poor historian (history dementia), I discussed the case with cardiology and it was thought that the patient is having episodes of A-fib with RVR and that is causing her to have similar symptoms, she is anticoagulated, she is been on metoprolol for rate control, she had a Holter monitor done 08/07/2024 which had revealed intermittent episodes of A-fib with RVR, the time examination she denies any chest pain, she denies any palpitations, she denies shortness of breath, PMH : COPD, CVA, hypertension, hypothyroid, Dementia, Paroxysmal A-fib Timing/Duration: week(s) Severity: moderate Associated Symptoms: denies symptoms Allergies/Adverse Reactions: No Known Drug Allergies Allergy (Verified 01/01/25 12:16) Home Medications: Hydrochlorothiazide 25 mg [hydroDIURIL 25 MG] 25 mg PO DAILY 10/07/22 [History] Aspirin EC 81 mg [Ecotrin 81 mg] 81 mg PO DAILY 12/29/22 [History] Bupropion HCl Xl 150 mg [Wellbutrin XL 150 MG] 300 mg PO DAILY 12/29/22 [History] Donepezil HCl [Aricept] 10 mg PO DAILY 12/29/22 [History] Levothyroxine Sodium 150 Mcg [Synthroid 150 Mcg] 100 mcg PO DAILY 12/29/22 [History] Sertraline HCl [Zoloft] 100 mg PO DAILY 12/29/22 [History] clonazePAM 0.5 mg PO TID PRN 12/29/22 [History] dilTIAZem HCL [Diltiazem 24Hr ER] 120 mg PO HS 12/29/22 [History] Metformin HCl [Metformin HCl ER] 500 mg PO DAILY 01/01/25 [History] Metoprolol Succinate [Toprol Xl] 50 mg PO DAILY 01/01/25 [History] Hx Tetanus, Diphtheria Vaccination/Date Given: No Hx Influenza Vaccination/Date Given: No Hx Pneumococcal Vaccination/Date Given: No Immunizations Up to Date: Yes Travel Risk - International Travel Have you traveled outside of the country in past 3 weeks: No - Emerging Infectious Disease Are you exhibiting symptoms associated with any current EIDs: No - Past Medical History Pertinent Past Medical History: Yes Neurological History: Stroke, TIA ENT History: No Pertinent History Cardiac History: Hypertension Respiratory History: COPD Endocrine Medical History: Hypothyroidism Musculoskeletal History: Osteoarthritis GI Medical History: No Pertinent History History: No Pertinent History Psycho-Social History: Anxiety, Depression Female Reproductive Disorders: No Pertinent History Other Medical History: 3 TIA, 1 CVA, BREAST CA, RADICAL MASECTOMY. - Past Surgical History Past Surgical History: Yes Neuro Surgical History: No Pertinent History Cardiac: No Pertinent History Respiratory: No Pertinent History Gastrointestinal: Appendectomy Genitourinary: No Pertinent History Musculoskeletal: Orthopedic Surgery Female Surgical History: No Pertinent History Other Surgical History: left masectomy - Social History Smoking Status: Current some day smoker How long have you smoked: UNAWARE Exposure to second hand smoke: No Drug Use: none - Social Determinants of Health Will the patient participate in the screening: Yes Do you worry about a steady place to live?: No Do you have any problems with any of the following?: No known problems In the past 12 months,have you had to go without utilities?: No Transportation Issues: No Has anyone in your support network made you feel unsafe?: No Have you or anyone in your house had to go w/o enough food: No - Nursing Vital Signs Nursing Vital Signs: Initial Vital Signs Temperature 97.5 F 01/01/25 11:59 Pulse Rate 76 01/01/25 11:59 Respiratory Rate 16 01/01/25 11:59 Blood Pressure 170/88 01/01/25 11:59 O2 Sat by Pulse Oximetry 99 01/01/25 11:59 Pain Scale Pain Intensity 0 - Physical Exam General Appearance: no apparent distress, alert Eye Exam: PERRL/EOMI, eyes nml inspection Ears, Nose, Throat Exam: normal ENT inspection, TMs normal, pharynx normal, moist mucous membranes Neck Exam: normal inspection, non-tender, supple, full range of motion Respiratory Exam: normal breath sounds, lungs clear, No respiratory distress Cardiovascular Exam: regular rate/rhythm, normal heart sounds, normal peripheral pulses Gastrointestinal/Abdomen Exam: soft, normal bowel sounds, No tenderness, No mass Back Exam: normal inspection, normal range of motion, No CVA tenderness, No vertebral tenderness Extremity Exam: normal inspection, normal range of motion, pelvis stable Neurologic Exam: alert, oriented x 3, cooperative, normal mood/affect, nml cerebellar function, nml station & gait, sensation nml, No motor deficits Skin Exam: normal color, warm, dry, No rash Lymphatic Exam: No adenopathy SpO2 Interpretation: normal SpO2: 97 Ordered Tests: Active Orders 24 hr Category Date Time Status CHEST 1 VIEW (PORTABLE) Stat Exams 01/01/25 12:21 Completed CBC W DIFF Stat Lab 01/01/25 12:20 Completed CMP Stat Lab 01/01/25 12:20 Completed TROPONIN Q4H Lab 01/01/25 12:20 Completed TROPONIN Q4H Lab 01/01/25 16:30 Ordered TROPONIN Q4H Lab 01/01/25 20:30 Ordered Medication Summary Generic Name Dose Route Start Last Admin Trade Name Freq PRN Reason Stop Dose Admin Amiodarone HCl 200 mg 01/02/25 12:25 01/01/25 12:53 Amiodarone Hcl 200 Mg Tab PO 01/02/25 12:26 200 mg ONCE ONE Administration Discontinued Medications Generic Name Dose Route Start Last Admin Trade Name Freq PRN Reason Stop Dose Admin Ondansetron HCl 4 mg 01/01/25 12:26 01/01/25 12:51 Ondansetron Hcl 4 Mg/2 Ml Vial IV 01/01/25 12:27 4 mg STAT ONE Administration Ondansetron HCl Confirm 01/01/25 12:32 Ondansetron Hcl 4 Mg/2 Ml Vial Administered 01/01/25 12:33 Dose 4 mg .ROUTE .K-MED ONE Lab/Rad Data: Laboratory Result Diagrams 01/01/25 12:20 01/01/25 12:20 Laboratory Results 01/01/25 01/01/25 01/01/25 Range/Units 12:20 12:20 12:20 WBC 7.1 (3.98-10.04) x10^3/uL RBC 3.87 L (3.93-5.22) x10^6/uL Hgb 12.4 (11.2-15.7) g/dL Hct 37.5 (34.1-44.9) % MCV 96.9 H (79.4-94.8) fL MCH 32.0 (25.6-32.2) pg MCHC 33.1 (32.2-35.5) g/dL RDW 12.5 (11.7-14.4) % Plt Count 280 (182-369) x10^3/uL MPV 11.6 (9.4-12.3) fL Gran % 64.4 (34.0-71.1) % Immature Gran % (Auto) 0.6 H (0.001-0.429) % Nucleat RBC Rel Count 0.0 (0.00-0.2) % Eos # (Auto) 0.10 (0.04-0.36) x10^3/uL Immature Gran # (Auto) 0.04 H (0.001-0.031) x10^3u/L Absolute Lymphs (auto) 1.84 (1.18-3.74) x10^3/uL Absolute Monos (auto) 0.51 (0.24-0.86) x10^3/uL Absolute Nucleated RBC 0.00 (0.00-0.012) x10^3u/L Lymphocytes % 25.8 (19.3-51.7) % Monocytes % 7.1 (4.7-12.5) % Eosinophils % 1.4 (0.7-5.8) % Basophils % 0.7 (0.1-1.2) % Absolute Granulocytes 4.60 (1.56-6.13) x10^3/uL Basophils # 0.05 (0.01-0.08) x10^3/uL Sodium 137 (135-145) mmol/L Potassium 4.4 (3.5-5.1) mmol/L Chloride 104 (98-107) mmol/L Carbon Dioxide 23 (22-30) mmol/L Anion Gap 14.3 (5-15) MEQ/L BUN 23 H (7-17) mg/dL Creatinine 1.34 H (0.52-1.04) mg/dL Estimated GFR 38.6 ML/MIN Glucose 111 H (74-106) mg/dL Calcium 10.0 (8.4-10.2) mg/dL Total Bilirubin 0.40 (0.2-1.3) mg/dL AST 18 (14-36) U/L ALT 18 (0-35) U/L Alkaline Phosphatase 87 (38-126) U/L Troponin I < 0.012 (0.000-0.033) ng/mL Serum Total Protein 7.5 (6.3-8.2) g/dL Albumin 4.7 (3.5-5.0) g/dL - Progress Progress Note: 01/01/25 13:59 discussed results, Cardiology recommends admission, consult to Hospitalist - Departure Departure Disposition: Observation Clinical Impression: Paroxysmal atrial fibrillation Condition: Stable Critical Care Time: No Referrals: GRAY SCHULER MD [Primary Care Provider, [facility]] - Follow up/PCP as directed
[2025-01-01] MEDS ORDERED: Zofran 4 MG/2 ML VIAL ONE (12:32)
[2025-01-01 12:36] LABS: BASOPHIL % 0.7 % (0.1-1.2); Basophil (Absolute #) 0.05 x10^3/uL (0.01-0.08); Eosinophil (Absolute #) 0.10 x10^3/uL (0.04-0.36); Hematocrit 37.5 % (34.1-44.9); Hemoglobin 12.4 g/dL (11.2-15.7); IMMATURE GRAN # 0.04 x10^3u/L (0.001-0.031); IMMATURE GRAN % 0.6 % (0.001-0.429); Lymphocyte (Absolute #) 1.84 x10^3/uL (1.18-3.74); Mean Corpuscular Hemoglobin 32.0 pg (25.6-32.2); Mean Corpuscular Hgb Concent. 33.1 g/dL (32.2-35.5); Monocyte (Absolute #) 0.51 x10^3/uL (0.24-0.86); NUCLEATED RBC # 0.00 x10^3u/L (0.00-0.012); NUCLEATED RBC % 0.0 % (0.00-0.2); Platelet Count 280 x10^3/uL (182-369); Red Blood Count 3.87 x10^6/uL (3.93-5.22); White Blood Count 7.1 x10^3/uL (3.98-10.04)
[2025-01-01 12:45] LABS: Calcium 10.0 mg/dL (8.4-10.2); Carbon Dioxide 23.0 mmol/L (22-30); Creatinine 1 1.34 mg/dL (0.52-1.04); EST GLOMERULAR FILTRATION RATE 38.6 ML/MIN; Glucose 111.0 mg/dL (74-106); Potassium 4.4 mmol/L (3.5-5.1); SGOT/AST 18.0 U/L (14-36); SGPT/ALT 18.0 U/L (0-35); Total Protein 7.5 g/dL (6.3-8.2)
--- NOTE | 2025-01-01 12:49 | XRAY ---
Indication: Short of breath. Comparison: May 31, 2024 Portable chest remains inflated and clear. Heart not enlarged again with tortuous descending aorta. Bony thorax intact again with osteopenia, mild degenerative changes, left mastectomy, and left axillary jose dissection. Impression: Continued nonacute chest with chronic features.
[2025-01-01] MEDS: Zofran 4 MG/2 ML VIAL IV ONE (12:51)
[2025-01-01] MEDS: Cordarone 200 MG PO ONE (12:53)
[2025-01-01] MEDS ORDERED: VENTOLIN COMMON CANISTER IH PRN (15:10)
--- NOTE | 2025-01-01 15:12 | PCM.HP ---
History of Present Illness - Chief Complaint Chief Complaint: Paroxysmal atrial fibrillation Date: 01/01/25 History of Present Illness: is a 84-year-old female with a past medical history significant for dementia, atrial fibrillation, prior stroke and transient ischemic attack, chronic obstructive pulmonary disease, hypertension, hypothyroidism, osteoarthritis, anxiety, depression, and a history of breast cancer status post mastectomy. She presented to the emergency department from the cardiology office after evaluation for ongoing symptoms of not feeling well over the past several weeks. The patient is a poor historian due to underlying dementia. The emergency department provider discussed the case with cardiology, who felt her symptoms may be related to intermittent episodes of atrial fibrillation with rapid ventricular response. She is currently anticoagulated and maintained on metoprolol for rate control. A Holter monitor performed on August 07, 2024, revealed intermittent episodes of atrial fibrillation with RVR. On presentation, she denies chest pain, palpitations, or shortness of breath. Laboratory workup shows normal electrolytes, and thyroid-stimulating hormone (TSH) results are pending. The patient began vomiting upon admission, and an antiemetic was administered with relief. Testing for influenza, COVID-19, and RSV is pending. At this time, she denies any further symptoms. - Review of Systems Constitutional: Weakness, No Fever, No Chills Eyes: No Symptoms Ears, Nose, & Throat: No Symptoms Respiratory: No Cough, No Short Of Breath Cardiac: No Chest Pain, No Edema, No Syncope Abdominal/Gastrointestinal: Vomiting, No Abdominal Pain, No Nausea, No Diarrhea Genitourinary Symptoms: No Dysuria Musculoskeletal: No Back Pain, No Neck Pain Skin: No Rash Neurological: No Dizziness, No Focal Weakness, No Sensory Changes Psychological: No Symptoms Endocrine: No Symptoms Hematologic/Lymphatic: No Symptoms Immunological/Allergic: No Symptoms Medications & Allergies Home Medications: Home Medication List Hydrochlorothiazide 25 mg [hydroDIURIL 25 MG] 25 mg PO DAILY 10/07/22 [History Confirmed 01/01/25] Aspirin EC 81 mg [Ecotrin 81 mg] 81 mg PO DAILY 12/29/22 [History Confirmed 01/01/25] Bupropion HCl Xl 150 mg [Wellbutrin XL 150 MG] 300 mg PO DAILY 12/29/22 [History Confirmed 01/01/25] Donepezil HCl [Aricept] 10 mg PO DAILY 12/29/22 [History Confirmed 01/01/25] Levothyroxine Sodium 150 Mcg [Synthroid 150 Mcg] 100 mcg PO DAILY 12/29/22 [History Confirmed 01/01/25] Albuterol Common Canister [Ventolin Common Canister] 2 puff IH Q4H PRN PRN 30 Days #1 inh 01/01/23 [Rx Confirmed 01/01/25] Dabigatran Etexilate Mesylate [Dabigatran Etexilate] 150 mg PO BID 01/01/25 [History Confirmed 01/01/25] Diclofenac Sodium [Arthritis Pain] 2 g TOP QID 01/01/25 [History Confirmed 01/01/25] Metoprolol Succinate [Toprol Xl] 50 mg PO DAILY 01/01/25 [History Confirmed 01/01/25] Spironolactone [Aldactone] 50 mg PO DAILY 01/01/25 [History Confirmed 01/01/25] Allergies/Adverse Reactions: Allergies Allergy/AdvReac Type Severity Reaction Status Date / Time No Known Drug Allergies Allergy Verified 01/01/25 12:16 - Past Medical History Past Medical History: Yes Neurological History: Stroke, TIA ENT History: No Pertinent History Cardiac History: Hypertension Respiratory History: COPD Endocrine Medical History: Hypothyroidism Musculoskelatal History: Osteoarthritis GI Medical History: No Pertinent History History: No Pertinent History Pyscho-Social History: Anxiety, Depression Reproductive Disorders: No Pertinent History Comment: 3 TIA, 1 CVA, BREAST CA, RADICAL MASECTOMY. - Past Surgical History Past Surgical History: Yes Neuro Surgical History: No Pertinent History Cardiac History: No Pertinent History Respiratory Surgery: No Pertinent History GI Surgical History: Appendectomy Genitourinary Surgical Hx: No Pertinent History Musculskeletal Surgical Hx: Orthopedic Surgery Female Surgical History: No Pertinent History Other Surgical History: left masectomy - Social History Smoking Status: Current some day smoker How long have you smoked: UNAWARE Exposure to second hand smoke: No Alcohol: Occasionally Drug Use: none - Social Determinants of Health Will the patient participate in the screening: Yes Do you worry about a steady place to live?: No Do you have any problems with any of the following?: No known problems In the past 12 months,have you had to go without utilities?: No Have you or anyone in your house had to go without enough: No Transportation Issues: No Has anyone in your support network made you feel unsafe?: No - Physical Exam Vital Signs: Vital Signs - 24 hr Temp Pulse Pulse Resp BP BP Pulse Ox 01/01/25 14:58 97.9 F 56 L 18 158/70 99 01/01/25 14:40 57 L 14 99 01/01/25 14:37 61 19 98 01/01/25 14:08 97 01/01/25 14:01 174/71 01/01/25 13:31 56 L 24 156/86 96 01/01/25 13:01 71 11 L 172/80 97 01/01/25 12:54 64 17 142/106 97 01/01/25 12:50 70 15 95 01/01/25 12:40 73 23 97 01/01/25 12:33 70 13 96 01/01/25 12:19 62 97 01/01/25 12:05 64 17 170/88 97 01/01/25 11:59 97.5 F 76 16 170/88 99 General Appearance: no apparent distress, alert Neurologic Exam: alert, oriented x 3, cooperative, normal mood/affect, nml cerebellar function, nml station & gait, sensation nml, confusion (at baseline), motor weakness, No motor deficits Eye Exam: PERRL/EOMI, eyes nml inspection Ears, Nose, Throat Exam: normal ENT inspection, TMs normal, pharynx normal, moist mucous membranes Neck Exam: normal inspection, non-tender, supple, full range of motion Respiratory Exam: normal breath sounds, lungs clear, No respiratory distress Cardiovascular Exam: regular rate/rhythm, normal heart sounds, normal peripheral pulses Gastrointestinal/Abdomen Exam: soft, normal bowel sounds, No tenderness, No mass Back Exam: normal inspection, normal range of motion, No CVA tenderness, No vertebral tenderness Extremity Exam: normal inspection, normal range of motion, pelvis stable Skin Exam: normal color, warm, dry, No rash Lymphatic Exam: No adenopathy Results - Labs Lab/Micro Results: Lab Results-Last 24 Hours 01/01/25 01/01/25 01/01/25 Range/Units 12:20 12:20 12:20 WBC 7.1 (3.98-10.04) x10^3/uL RBC 3.87 L (3.93-5.22) x10^6/uL Hgb 12.4 (11.2-15.7) g/dL Hct 37.5 (34.1-44.9) % MCV 96.9 H (79.4-94.8) fL MCH 32.0 (25.6-32.2) pg MCHC 33.1 (32.2-35.5) g/dL RDW 12.5 (11.7-14.4) % Plt Count 280 (182-369) x10^3/uL MPV 11.6 (9.4-12.3) fL Gran % 64.4 (34.0-71.1) % Immature Gran % (Auto) 0.6 H (0.001-0.429) % Nucleat RBC Rel Count 0.0 (0.00-0.2) % Eos # (Auto) 0.10 (0.04-0.36) x10^3/uL Immature Gran # (Auto) 0.04 H (0.001-0.031) x10^3u/L Absolute Lymphs (auto) 1.84 (1.18-3.74) x10^3/uL Absolute Monos (auto) 0.51 (0.24-0.86) x10^3/uL Absolute Nucleated RBC 0.00 (0.00-0.012) x10^3u/L Lymphocytes % 25.8 (19.3-51.7) % Monocytes % 7.1 (4.7-12.5) % Eosinophils % 1.4 (0.7-5.8) % Basophils % 0.7 (0.1-1.2) % Absolute Granulocytes 4.60 (1.56-6.13) x10^3/uL Basophils # 0.05 (0.01-0.08) x10^3/uL Sodium 137 (135-145) mmol/L Potassium 4.4 (3.5-5.1) mmol/L Chloride 104 (98-107) mmol/L Carbon Dioxide 23 (22-30) mmol/L Anion Gap 14.3 (5-15) MEQ/L BUN 23 H (7-17) mg/dL Creatinine 1.34 H (0.52-1.04) mg/dL Estimated GFR 38.6 ML/MIN Glucose 111 H (74-106) mg/dL Calcium 10.0 (8.4-10.2) mg/dL Total Bilirubin 0.40 (0.2-1.3) mg/dL AST 18 (14-36) U/L ALT 18 (0-35) U/L Alkaline Phosphatase 87 (38-126) U/L Troponin I < 0.012 (0.000-0.033) ng/mL Serum Total Protein 7.5 (6.3-8.2) g/dL Albumin 4.7 (3.5-5.0) g/dL - Radiology Impressions Radiology Exams & Impressions: Radiology Procedures Category Date Time Status CHEST 1 VIEW (PORTABLE) Stat Exams 01/01/25 12:21 Completed Assessment/Plan (1) Paroxysmal atrial fibrillation Current Visit: Yes Status: Acute Assessment & Plan: - Tele - TSH - EKG - ECHO - Continue meds for rate control as recently changed by knitting demonstrator - CXR: Impression: Continued nonacute chest with chronic features. - Trops x3 negative Code(s): I48.0 - PAROXYSMAL ATRIAL FIBRILLATION (2) Weakness Current Visit: Yes Status: Acute Assessment & Plan: - PT eval - CBC, CMP reviewed - Consider placement - Flu/COVID/RSV pending Code(s): R53.1 - WEAKNESS (3) Vomiting Current Visit: Yes Status: Acute Assessment & Plan: - Antiemetic Code(s): R11.10 - VOMITING, UNSPECIFIED (4) Hypertension Current Visit: No Status: Chronic Assessment & Plan: - Continue home meds Code(s): I10 - ESSENTIAL (PRIMARY) HYPERTENSION (5) COPD (chronic obstructive pulmonary disease) Current Visit: No Status: Chronic Assessment & Plan: - RA 99% - CXR negative for acute findings - Not in acute exacerbation (6) Dementia Current Visit: No Status: Chronic Assessment & Plan: - Noted - Adds to complexity - Consider placement Code(s): F03.90 - UNSP DEMENTIA, UNSP SEVERITY, WITHOUT BEH/PSYCH/MOOD/ANX (7) History of stroke Current Visit: No Status: Chronic Assessment & Plan: - Continue Pradaxa Code(s): Z86.73 - PRSNL HX OF TIA (TIA), AND CEREB INFRC W/O RESID DEFICITS (8) Hypothyroid Current Visit: No Status: Chronic Assessment & Plan: - TSH pending - Continue synthroid Code(s): E03.9 - HYPOTHYROIDISM, UNSPECIFIED (9) CKD (chronic kidney disease) Current Visit: Yes Status: Chronic Assessment & Plan: - CMP reviewed - Creat at baseline VTE: Pradaxa PPI: Protonix Next of KIN:daughter D/C plan: 1-2 days Code status: Full Plan of care time > 50 miutes Code(s): N18.9 - CHRONIC KIDNEY DISEASE, UNSPECIFIED
[2025-01-01] MEDS: Zofran 4 MG/2 ML VIAL IV PRN (17:31)
[2025-01-01 20:55] LABS: INFLUENZA A NEGATIVE (NEGATIVE); INFLUENZA B NEGATIVE (NEGATIVE); RESPIRATORY SYNCTIAL VIRUS NEGATIVE (NEGATIVE); SARS-CoV-2 Xpert Express NEGATIVE (NEGATIVE)
[2025-01-01] MEDS: Cardizem CD PO SCH (21:57)
[2025-01-01] MEDS: PRADAXA 75 MG PO SCH (21:57)
[2025-01-01] MEDS ORDERED: NON-FORMULARY ITEM (Diltiazem Hcl [Diltiazem 24hr Er] 120 MG Cap.Sa.24h) PO SCH (22:00)
[2025-01-01] MEDS: Sodium Chloride 0.9% 10 ML FLUSH Syringe IV SCH (22:02)
[2025-01-01] MEDS: DICLOFENAC SODIUM TP SCH (22:02)
[2025-01-02 05:26] LABS: BASOPHIL % 0.7 % (0.1-1.2); Basophil (Absolute #) 0.05 x10^3/uL (0.01-0.08); Eosinophil (Absolute #) 0.15 x10^3/uL (0.04-0.36); Hematocrit 35.2 % (34.1-44.9); Hemoglobin 11.7 g/dL (11.2-15.7); IMMATURE GRAN # 0.02 x10^3u/L (0.001-0.031); IMMATURE GRAN % 0.3 % (0.001-0.429); Lymphocyte (Absolute #) 2.28 x10^3/uL (1.18-3.74); Mean Corpuscular Hemoglobin 32.1 pg (25.6-32.2); Mean Corpuscular Hgb Concent. 33.2 g/dL (32.2-35.5); Monocyte (Absolute #) 0.45 x10^3/uL (0.24-0.86); NUCLEATED RBC # 0.00 x10^3u/L (0.00-0.012); NUCLEATED RBC % 0.0 % (0.00-0.2); Platelet Count 284 x10^3/uL (182-369); Red Blood Count 3.64 x10^6/uL (3.93-5.22); White Blood Count 6.8 x10^3/uL (3.98-10.04)
[2025-01-02 07:05] LABS: Calcium 9.2 mg/dL (8.4-10.2); Carbon Dioxide 23.0 mmol/L (22-30); Creatinine 1 1.36 mg/dL (0.52-1.04); EST GLOMERULAR FILTRATION RATE 37.9 ML/MIN; Glucose 104.0 mg/dL (74-106); Potassium 4.0 mmol/L (3.5-5.1)
[2025-01-02] MEDS ORDERED: NON-FORMULARY ITEM (Donepezil Hcl [Aricept] 5 MG Tablet) PO SCH (10:00)
[2025-01-02] MEDS ORDERED: LEVOTHYROXINE SODIUM 150 MCG PO SCH (10:00)
[2025-01-02] MEDS ORDERED: NON-FORMULARY ITEM (Metformin Hcl 500 MG Tab.Er.24h) PO SCH (10:00)
[2025-01-02] MEDS ORDERED: NON-FORMULARY ITEM (Sertraline Hcl [Zoloft] 100 MG Tablet) PO SCH (10:00)
[2025-01-02] MEDS: ECOTRIN 81 MG PO SCH (11:04)
[2025-01-02] MEDS: Aricept 10 MG PO SCH (11:05)
[2025-01-02] MEDS: hydroDIURIL 25 MG PO SCH (11:06)
[2025-01-02] MEDS: ZOLOFT 50 MG TABLET PO SCH (11:06)
[2025-01-02] MEDS: Glucophage XR 500 MG PO SCH (11:06)
[2025-01-02] MEDS: SYNTHROID 100 MCG PO SCH (11:07)
[2025-01-02] MEDS: Toprol Xl 50 MG PO SCH (11:07)
[2025-01-02] MEDS: Wellbutrin XL 150 MG PO SCH (11:07)
[2025-01-02] MEDS: Protonix 20MG Tablet PO SCH (11:07)
--- NOTE | 2025-01-02 13:43 | PCM.NOTE ---
Date and Time: 01/02/25 1335 Subjective Assessment: 01/01/25 is a 84-year-old female with a past medical history significant for dementia, atrial fibrillation, prior stroke and transient ischemic attack, chronic obstructive pulmonary disease, hypertension, hypothyroidism, osteoarthritis, anxiety, depression, and a history of breast cancer status post mastectomy. She presented to the emergency department from the cardiology office after evaluation for ongoing symptoms of not feeling well over the past several weeks. The patient is a poor historian due to underlying dementia. The emergency department provider discussed the case with cardiology, who felt her symptoms may be related to intermittent episodes of atrial fibrillation with rapid ve ntricular response. She is currently anticoagulated and maintained on metoprolol for rate control. A Holter monitor performed on August 07, 2024, revealed intermittent episodes of atrial fibrillation with RVR. On presentation, she denies chest pain, palpitations, or shortness of breath. Laboratory workup shows normal electrolytes, and thyroid-stimulating hormone (TSH) results are pending. The patient began vomiting upon admission, and an antiemetic was administered with relief. Testing for influenza, COVID-19, and RSV is pending. At this time, she denies any further symptoms. 01/02/25 The patient is resting comfortably in bed today and has had no further episodes of atrial fibrillation with rapid ventricular response since admission. The case was discussed with Dr. Aundrea saenz's life trainer, who recommended initiating amiodarone 200 mg twice daily for two weeks, followed by a reduction to one tablet daily thereafter. He also advised discontinuing Cardizem while continuing metoprolol 150 mg daily for rate control. The patient will remain hospitalized for one additional night to monitor her response to the medication adjustment. Physical therapy will evaluate the patient to assess for any home needs prior to discharge tomorrow. Her creatinine remains at baseline, and she denies any new symptoms or concerns at this time. - Review of Systems Constitutional: No Fever, No Chills Eyes: No Symptoms Ears, Nose, & Throat: No Symptoms Respiratory: No Cough, No Short Of Breath Cardiac: No Chest Pain, No Edema, No Syncope Abdominal/Gastrointestinal: No Abdominal Pain, No Nausea, No Vomiting, No Diarrhea Genitourinary Symptoms: No Dysuria Musculoskeletal: No Back Pain, No Neck Pain Skin: No Rash Neurological: No Dizziness, No Focal Weakness, No Sensory Changes Psychological: No Symptoms Endocrine: No Symptoms Hematologic/Lymphatic: No Symptoms Immunological/Allergic: No Symptoms Objective Exam General Appearance: no apparent distress, alert Neurologic Exam: alert, oriented x 3, cooperative, normal mood/affect, nml cerebellar function, sensation nml, No motor deficits Skin Exam: normal color, warm, dry Eye Exam: PERRL, EOMI, eyes nml inspection Ears, Nose, Throat Exam: normal ENT inspection, pharynx normal, moist mucous membranes Neck Exam: normal inspection, non-tender, supple, full range of motion Respiratory Exam: normal breath sounds, lungs clear, No respiratory distress Cardiovascular Exam: regular rate/rhythm, normal heart sounds Gastrointestinal/Abdomen Exam: soft, No tenderness, No mass Extremity Exam: normal inspection, normal range of motion Back Exam: normal inspection, normal range of motion, No CVA tenderness, No vertebral tenderness Pelvic Exam: deferred Rectal Exam: deferred Objective Data Vital Signs: Vital Signs - 24 hr Temp Pulse Resp BP BP Pulse Ox 01/02/25 11:29 98.4 F 60 18 118/56 95 01/02/25 07:25 97.6 F 56 L 16 116/56 99 01/02/25 04:00 96.9 F 65 21 139/86 96 01/01/25 23:45 97.1 F 64 18 110/53 95 01/01/25 20:00 97.9 F 61 18 127/62 98 01/01/25 15:04 97.9 F 56 L 18 158/70 99 01/01/25 14:58 97.9 F 56 L 18 158/70 99 01/01/25 14:40 57 L 14 99 01/01/25 14:37 61 19 98 01/01/25 14:08 97 01/01/25 14:01 174/71 Pain Assessment - Last Documented Pain Intensity 0 Intake and Output: Intake & Output 12/31/24 01/01/25 01/02/25 01/03/25 11:59 11:59 11:59 11:59 Intake Total 1020 Balance 1020 Weight 74.3 kg Lab Results: Lab Results-Last 24 Hours 01/01/25 01/01/25 01/01/25 Range/Units 16:29 16:29 16:29 WBC (3.98-10.04) x10^3/uL RBC (3.93-5.22) x10^6/uL Hgb (11.2-15.7) g/dL Hct (34.1-44.9) % MCV (79.4-94.8) fL MCH (25.6-32.2) pg MCHC (32.2-35.5) g/dL RDW (11.7-14.4) % Plt Count (182-369) x10^3/uL MPV (9.4-12.3) fL Gran % (34.0-71.1) % Immature Gran % (Auto) (0.001-0.429) % Nucleat RBC Rel Count (0.00-0.2) % Eos # (Auto) (0.04-0.36) x10^3/uL Immature Gran # (Auto) (0.001-0.031) x10^3u/L Absolute Lymphs (auto) (1.18-3.74) x10^3/uL Absolute Monos (auto) (0.24-0.86) x10^3/uL Absolute Nucleated RBC (0.00-0.012) x10^3u/L Lymphocytes % (19.3-51.7) % Monocytes % (4.7-12.5) % Eosinophils % (0.7-5.8) % Basophils % (0.1-1.2) % Absolute Granulocytes (1.56-6.13) x10^3/uL Basophils # (0.01-0.08) x10^3/uL Sodium (135-145) mmol/L Potassium (3.5-5.1) mmol/L Chloride (98-107) mmol/L Carbon Dioxide (22-30) mmol/L Anion Gap (5-15) MEQ/L BUN (7-17) mg/dL Creatinine (0.52-1.04) mg/dL Estimated GFR ML/MIN Glucose (74-106) mg/dL Calcium (8.4-10.2) mg/dL Magnesium 2.0 (1.6-2.3) mg/dL Troponin I < 0.012 (0.000-0.033) ng/mL TSH 3rd Generation 4.679 (0.470-4.680) mIU/L Influenza Type A Ag (NEGATIVE) Influenza Type B Ag (NEGATIVE) RSV (PCR) (NEGATIVE) SARS-CoV-2 (PCR) (NEGATIVE) 01/01/25 01/01/25 01/02/25 Range/Units 20:15 20:15 04:30 WBC 6.8 (3.98-10.04) x10^3/uL RBC 3.64 L (3.93-5.22) x10^6/uL Hgb 11.7 (11.2-15.7) g/dL Hct 35.2 (34.1-44.9) % MCV 96.7 H (79.4-94.8) fL MCH 32.1 (25.6-32.2) pg MCHC 33.2 (32.2-35.5) g/dL RDW 12.6 (11.7-14.4) % Plt Count 284 (182-369) x10^3/uL MPV 11.7 (9.4-12.3) fL Gran % 56.8 (34.0-71.1) % Immature Gran % (Auto) 0.3 (0.001-0.429) % Nucleat RBC Rel Count 0.0 (0.00-0.2) % Eos # (Auto) 0.15 (0.04-0.36) x10^3/uL Immature Gran # (Auto) 0.02 (0.001-0.031) x10^3u/L Absolute Lymphs (auto) 2.28 (1.18-3.74) x10^3/uL Absolute Monos (auto) 0.45 (0.24-0.86) x10^3/uL Absolute Nucleated RBC 0.00 (0.00-0.012) x10^3u/L Lymphocytes % 33.4 (19.3-51.7) % Monocytes % 6.6 (4.7-12.5) % Eosinophils % 2.2 (0.7-5.8) % Basophils % 0.7 (0.1-1.2) % Absolute Granulocytes 3.88 (1.56-6.13) x10^3/uL Basophils # 0.05 (0.01-0.08) x10^3/uL Sodium (135-145) mmol/L Potassium (3.5-5.1) mmol/L Chloride (98-107) mmol/L Carbon Dioxide (22-30) mmol/L Anion Gap (5-15) MEQ/L BUN (7-17) mg/dL Creatinine (0.52-1.04) mg/dL Estimated GFR ML/MIN Glucose (74-106) mg/dL Calcium (8.4-10.2) mg/dL Magnesium (1.6-2.3) mg/dL Troponin I < 0.012 (0.000-0.033) ng/mL TSH 3rd Generation (0.470-4.680) mIU/L Influenza Type A Ag NEGATIVE (NEGATIVE) Influenza Type B Ag NEGATIVE (NEGATIVE) RSV (PCR) NEGATIVE (NEGATIVE) SARS-CoV-2 (PCR) NEGATIVE (NEGATIVE) 01/02/25 Range/Units 04:30 WBC (3.98-10.04) x10^3/uL RBC (3.93-5.22) x10^6/uL Hgb (11.2-15.7) g/dL Hct (34.1-44.9) % MCV (79.4-94.8) fL MCH (25.6-32.2) pg MCHC (32.2-35.5) g/dL RDW (11.7-14.4) % Plt Count (182-369) x10^3/uL MPV (9.4-12.3) fL Gran % (34.0-71.1) % Immature Gran % (Auto) (0.001-0.429) % Nucleat RBC Rel Count (0.00-0.2) % Eos # (Auto) (0.04-0.36) x10^3/uL Immature Gran # (Auto) (0.001-0.031) x10^3u/L Absolute Lymphs (auto) (1.18-3.74) x10^3/uL Absolute Monos (auto) (0.24-0.86) x10^3/uL Absolute Nucleated RBC (0.00-0.012) x10^3u/L Lymphocytes % (19.3-51.7) % Monocytes % (4.7-12.5) % Eosinophils % (0.7-5.8) % Basophils % (0.1-1.2) % Absolute Granulocytes (1.56-6.13) x10^3/uL Basophils # (0.01-0.08) x10^3/uL Sodium 134 L (135-145) mmol/L Potassium 4.0 (3.5-5.1) mmol/L Chloride 102 (98-107) mmol/L Carbon Dioxide 23 (22-30) mmol/L Anion Gap 13.1 (5-15) MEQ/L BUN 22 H (7-17) mg/dL Creatinine 1.36 H (0.52-1.04) mg/dL Estimated GFR 37.9 ML/MIN Glucose 104 (74-106) mg/dL Calcium 9.2 (8.4-10.2) mg/dL Magnesium (1.6-2.3) mg/dL Troponin I (0.000-0.033) ng/mL TSH 3rd Generation (0.470-4.680) mIU/L Influenza Type A Ag (NEGATIVE) Influenza Type B Ag (NEGATIVE) RSV (PCR) (NEGATIVE) SARS-CoV-2 (PCR) (NEGATIVE) Radiology Exams: Radiology Procedures Category Date Time Status CHEST 1 VIEW (PORTABLE) Stat Exams 01/01/25 12:21 Completed ECHO W/2D AND DOPPLER [US] Routine Exams 01/02/25 08:00 Taken Medications: Medications Generic Name Dose Route Start Last Admin Trade Name Freq PRN Reason Stop Dose Admin Amiodarone HCl 200 mg 01/02/25 22:00 Amiodarone Hcl 200 Mg Tab PO 01/16/25 21:59 BID CHRISTOPHER Aspirin 81 mg 01/02/25 10:00 01/02/25 11:04 Aspirin 81 Mg Tablet.Ec PO 02/01/25 09:59 81 mg DAILY CHRISTOPHER Administration Bupropion HCl 300 mg 01/02/25 10:00 01/02/25 11:07 Bupropion Hcl 150 Mg Tablet Xl PO 02/01/25 09:59 300 mg DAILY CHRISTOPHER Administration Clonazepam 0.5 mg 01/01/25 15:10 Clonazepam 0.5 Mg Tablet PO 01/31/25 15:09 TID PRN PRN ANXIETY Dabigatran 150 mg 01/01/25 22:00 01/02/25 11:04 Dabigatran Etexilate Mesylate 75 Mg Capsule PO 01/31/25 21:59 150 mg BID CHRISTOPHER Administration Diclofenac Sodium 2 gm 01/01/25 22:00 01/02/25 11:12 Diclofenac Sodium 100 Gm Gel..Gram. TP 01/31/25 21:59 Not Given QID CHRISTOPHER Donepezil HCl 5 mg 01/02/25 10:00 01/02/25 11:05 Donepezil Hcl 10 Mg Tablet PO 02/01/25 09:59 5 mg DAILY CHRISTOPHER Administration Hydrochlorothiazide 25 mg 01/02/25 10:00 01/02/25 11:06 Hydrochlorothiazide 25 Mg Tablet PO 02/01/25 09:59 25 mg DAILY CHRISTOPHER Administration Levothyroxine Sodium 100 mcg 01/02/25 10:00 01/02/25 11:07 Levothyroxine Sodium 100 Mcg Tablet PO 02/01/25 09:59 100 mcg DAILY CHRISTOPHER Administration Metformin HCl 500 mg 01/02/25 10:00 01/02/25 11:06 Metformin Hcl Er 500 Mg Tab PO 02/01/25 09:59 500 mg DAILY CHRISTOPHER Administration Metoprolol Succinate 50 mg 01/02/25 10:00 01/02/25 11:07 Metoprolol Succinate 50 Mg Tablet.Sa PO 02/01/25 09:59 50 mg DAILY CHRISTOPHER Administration Ondansetron HCl 4 mg 01/01/25 17:24 01/01/25 17:31 Ondansetron Hcl 4 Mg/2 Ml Vial IV 01/31/25 17:23 4 mg Q6H PRN PRN Administration NAUSEA/VOMITING Pantoprazole Sodium 20 mg 01/02/25 10:00 01/02/25 11:07 Pantoprazole 20 Mg Tab PO 02/01/25 09:59 20 mg DAILY CHRISTOPHER Administration Sertraline HCl 100 mg 01/02/25 10:00 01/02/25 11:06 Sertraline Hcl 50 Mg Tab PO 02/01/25 09:59 100 mg DAILY CHRISTOPHER Administration Sodium Chloride 10 ml 01/01/25 22:00 01/02/25 05:12 Normal Saline 10 Ml Flush IV 01/31/25 21:59 10 ml Q8HT CHRISTOPHER Administration Discontinued Medications Generic Name Dose Route Start Last Admin Trade Name Freq PRN Reason Stop Dose Admin Albuterol Sulfate 2 puff 01/01/25 15:10 Albuterol Common Canister Inhaler IH 01/31/25 15:09 Q4H PRN PRN SHORTNESS OF BREATH/WHEEZING Amiodarone HCl 200 mg 01/02/25 12:25 01/01/25 12:53 Amiodarone Hcl 200 Mg Tab PO 01/02/25 12:26 200 mg ONCE ONE Administration Diltiazem HCl 120 mg 01/01/25 22:00 01/01/25 21:57 Diltiazem Hcl Cd 120 Mg Cap.Sr.24h PO 01/31/25 21:59 120 mg HS CHRISTOPHER Administration Ondansetron HCl 4 mg 01/01/25 12:26 01/01/25 12:51 Ondansetron Hcl 4 Mg/2 Ml Vial IV 01/01/25 12:27 4 mg STAT ONE Administration Ondansetron HCl Confirm 01/01/25 12:32 Ondansetron Hcl 4 Mg/2 Ml Vial Administered 01/01/25 12:33 Dose 4 mg .ROUTE .STK-MED ONE Multi-Disciplinary Progress Notes: Multi-Disciplinary Progress Notes 01/02/25 11:47 Case Management Note by Arelis Foster Addendum entered by Arelis Foster 01/02/25 13:09: [facility] HAS ACCEPTED Original Note: NEW REFERRAL FAXED TO [facility]- SHE HAS HAD THEM IN THE PAST THEY WILL NEED NOTIFIED AT TIME OF DC AT [phone]. THEY WILL NEED FAXED THE DC INSTRUCTIONS, DC MED LIST AND DC SUMMARY TO [phone] Initialized on 01/02/25 11:47 - END OF NOTE Assessment/Plan (1) Paroxysmal atrial fibrillation Current Visit: Yes Status: Acute Code(s): I48.0 - PAROXYSMAL ATRIAL FIBRILLATION (2) Weakness Current Visit: Yes Status: Acute Code(s): R53.1 - WEAKNESS (3) Vomiting Current Visit: Yes Status: Acute Code(s): R11.10 - VOMITING, UNSPECIFIED (4) Hypertension Current Visit: No Status: Chronic Code(s): I10 - ESSENTIAL (PRIMARY) HYPERTENSION (5) COPD (chronic obstructive pulmonary disease) Current Visit: No Status: Chronic (6) Dementia Current Visit: No Status: Chronic Code(s): F03.90 - UNSP DEMENTIA, UNSP SEVERITY, WITHOUT BEH/PSYCH/MOOD/ANX (7) History of stroke Current Visit: No Status: Chronic Code(s): Z86.73 - PRSNL HX OF TIA (TIA), AND CEREB INFRC W/O RESID DEFICITS (8) Hypothyroid Current Visit: No Status: Chronic Code(s): E03.9 - HYPOTHYROIDISM, UNSPECIFIED (9) CKD (chronic kidney disease) Current Visit: Yes Status: Chronic Assessment & Plan: (1) Paroxysmal atrial fibrillation Current Visit: Yes Status: Acute Assessment & Plan: - Tele - TSH - EKG - ECHO - Continue meds for rate control as recently changed by life trainer - CXR: Impression: Continued nonacute chest with chronic features. - Trops x3 negative - Amiodarone 200mg x1 po gave in ER 01/02 - Discussed patient case with Dr. Chaudhary patient's life trainer. Per cardiology start amiodarone 200 mg twice a day for 2 weeks and then changed to 1 tablet daily thereafter. Stop Cardizem daily and continue metoprolol daily. - NSR- no episodes of A-fib or A-fib RVR since admission Code(s): I48.0 - PAROXYSMAL ATRIAL FIBRILLATION (2) Weakness Current Visit: Yes Status: Acute Assessment & Plan: - PT eval- at [facility] per PT - CBC, CMP reviewed - Consider placement - Flu/COVID/RSV pending Code(s): R53.1 - WEAKNESS (3) Vomiting Current Visit: Yes Status: Acute Assessment & Plan: - Antiemetic 01/02 - Resolved Code(s): R11.10 - VOMITING, UNSPECIFIED (4) Hypertension Current Visit: No Status: Chronic Assessment & Plan: - Continue home meds Code(s): I10 - ESSENTIAL (PRIMARY) HYPERTENSION (5) COPD (chronic obstructive pulmonary disease) Current Visit: No Status: Chronic Assessment & Plan: - RA 99% - CXR negative for acute findings - Not in acute exacerbation (6) Dementia Current Visit: No Status: Chronic Assessment & Plan: - Noted - Adds to complexity - Consider placement Code(s): F03.90 - UNSP DEMENTIA, UNSP SEVERITY, WITHOUT BEH/PSYCH/MOOD/ANX (7) History of stroke Current Visit: No Status: Chronic Assessment & Plan: - Continue Pradaxa Code(s): Z86.73 - PRSNL HX OF TIA (TIA), AND CEREB INFRC W/O RESID DEFICITS (8) Hypothyroid Current Visit: No Status: Chronic Assessment & Plan: - TSH WNL - Continue synthroid Code(s): E03.9 - HYPOTHYROIDISM, UNSPECIFIED (9) CKD (chronic kidney disease) Current Visit: Yes Status: Chronic Assessment & Plan: - CMP reviewed - Creat at baseline VTE: Pradaxa PPI: Protonix Next of KIN:daughter D/C plan: tomorrow Code status: Full Plan of care time > 45 miutes Code(s): N18.9 - CHRONIC KIDNEY DISEASE, UNSPECIFIED Code(s): N18.9 - CHRONIC KIDNEY DISEASE, UNSPECIFIED
[2025-01-02] MEDS: Compazine 10 MG/2 ML IV PRN (15:03)
--- NOTE | 2025-01-02 17:15 | PCM.NOTE ---
Discussed low HR with Dr. Chaudhary nurse and he stated to lower metoprolol to 25mg daily and continue with amiodarone dosing. Reviewed EKG with Dr. Chaudhary this afternoon.
[2025-01-02] MEDS: Cordarone 200 MG PO SCH (21:13)
[2025-01-03 08:17] VITALS: RESP 16; TEMP 97.5
[2025-01-03] MEDS: Toprol-Xl 25MG Tablets PO SCH (09:27)
--- NOTE | 2025-01-03 10:27 | PCM.DS ---
Discharge Summary Date of Admission: 01/01/25 14:52 Date of Discharge: 01/03/25 Admitting Physician: BRAD DELGADO MD Primary Care Provider: GRAY SCHULER Allergies Allergies No Known Drug Allergies Allergy (Verified 01/01/25 12:16) Hospital Summary - Hospital Course Hospital Course: Ms. Alexander is an 84-year-old female with a medical history significant for dementia, atrial fibrillation, prior stroke and transient ischemic attack, chronic obstructive pulmonary disease, hypertension, hypothyroidism, osteoarthritis, anxiety, depression, and a history of breast cancer status post mastectomy. She was admitted on January 01, 2025, after being referred from her cardiology office for evaluation of persistent symptoms of fatigue and malaise. Due to her underlying dementia, she was a limited historian. In the emergency department, her presentation and prior Holter monitor results from August 07, 2024, were reviewed, showing intermittent episodes of atrial fibrillation with rapid ventricular response (RVR). During hospitalization, she experienced no new episodes of atrial fibrillation with RVR. Cardiology, under the direction of Dr. Chaudhary, recommended starting amiodarone 200 mg twice daily for two weeks, followed by a maintenance dose of 200 mg daily thereafter. Cardizem was discontinued, and metoprolol was initially continued at 50 mg daily for rate control. However, her heart rate was noted to be running between 47 and 50 beats per minute yesterday evening, and the case was discussed with Dr. Chaudhary, who advised decreasing metoprolol to 25 mg daily while continuing amiodarone at the originally prescribed dose. The patient tolerated these medication adjustments well, and her heart rate and blood pressure remained stable overnight. Her creatinine remained at baseline, and no electrolyte abnormalities were noted. Physical therapy evaluated her for discharge readiness and determined that no additional home therapy needs were required. On January 03, 2025, the patient was observed walking independently in her room without difficulty. She reported feeling well, denied chest pain, shortness of breath, or palpitations, and expressed a desire to return home. Given her clinical stability and absence of new concerns, the patient is being discharged home today in stable condition. She will follow up with her personal consultant, Dr. Chaudhary, and her primary care provider for ongoing management of her atrial fibrillation, medication monitoring, and chronic medical conditions. - Vitals & Intake/Output Vital Signs: Vital Signs Temperature 97.5 F 01/03/25 08:00 Pulse Rate 70 01/03/25 08:00 Respiratory Rate 16 01/03/25 08:00 Blood Pressure 173/85 01/03/25 08:00 O2 Sat by Pulse Oximetry 91 L 01/03/25 08:00 Intake & Output: Intake & Output 12/31/24 01/01/25 01/02/25 01/03/25 11:59 11:59 11:59 11:59 Intake Total 1020 880 Output Total 1950 Balance 1020 -1070 Weight 74.3 kg - Lab Result Diagrams: 01/02/25 04:30 01/02/25 04:30 - Radiology Exams Ordered Rad Exams-Entire Visit: Radiology Procedures Category Date Time Status CHEST 1 VIEW (PORTABLE) Stat Exams 01/01/25 12:21 Completed ECHO W/2D AND DOPPLER [US] Routine Exams 01/02/25 08:00 Taken - Procedures and Test Procedures and Tests throughout Hospitalization: Therapy Orders & Screens 01/01/25 18:20 PT Eval & Treat ( Order) ONCE Reason for Eval:: weakness, possible placement Diagnosis: Paroxysmal atrial fibrillation 01/02/25 15:28 EKG STAT Comment: Diagnosis: Paroxysmal atrial fibrillation Discharge Exam General Appearance: no apparent distress, alert Neurologic Exam: alert, oriented x 3, cooperative, normal mood/affect, nml cerebellar function, sensation nml, No motor deficits Eye Exam: PERRL, EOMI, eyes nml inspection Ears, Nose, Throat Exam: normal ENT inspection, pharynx normal, moist mucous membranes Neck Exam: normal inspection, non-tender, supple, full range of motion Respiratory Exam: normal breath sounds, lungs clear, No respiratory distress Cardiovascular Exam: regular rate/rhythm, normal heart sounds Gastrointestinal/Abdomen Exam: soft, No tenderness, No mass Pelvic Exam: deferred Rectal Exam: deferred Back Exam: normal inspection, normal range of motion, No CVA tenderness, No vertebral tenderness Extremity Exam: normal inspection, normal range of motion Skin Exam: normal color, warm, dry Final Diagnosis/Problem List - Final Discharge Diagnosis/Problem (1) Paroxysmal atrial fibrillation Current Visit: Yes Status: Acute Code(s): I48.0 - PAROXYSMAL ATRIAL FIBRILLATION (2) Weakness Current Visit: Yes Status: Acute Code(s): R53.1 - WEAKNESS (3) Vomiting Current Visit: Yes Status: Acute Code(s): R11.10 - VOMITING, UNSPECIFIED (4) Hypertension Current Visit: No Status: Chronic Code(s): I10 - ESSENTIAL (PRIMARY) HYPERTENSION (5) COPD (chronic obstructive pulmonary disease) Current Visit: No Status: Chronic (6) Dementia Current Visit: No Status: Chronic Code(s): F03.90 - UNSP DEMENTIA, UNSP SEVERITY, WITHOUT BEH/PSYCH/MOOD/ANX (7) History of stroke Current Visit: No Status: Chronic Code(s): Z86.73 - PRSNL HX OF TIA (TIA), AND CEREB INFRC W/O RESID DEFICITS (8) Hypothyroid Current Visit: No Status: Chronic Code(s): E03.9 - HYPOTHYROIDISM, UNSPECIFIED (9) CKD (chronic kidney disease) Current Visit: Yes Status: Chronic Assessment & Plan: (1) Paroxysmal atrial fibrillation Current Visit: Yes Status: Acute Assessment & Plan: - Tele - TSH - EKG - ECHO - Continue meds for rate control as recently changed by personal consultant - CXR: Impression: Continued nonacute chest with chronic features. - Trops x3 negative - Amiodarone 200mg x1 po gave in ER 01/02 - Discussed patient case with Dr. Chaudhary patient's personal consultant. Per cardiology start amiodarone 200 mg twice a day for 2 weeks and then changed to 1 tablet daily thereafter. Stop Cardizem daily and continue metoprolol daily. - NSR- no episodes of A-fib or A-fib RVR since admission 01/03 - Discussed patient case yesterday with Dr. Chaudhary as well as spoke with patient's SHANIA Tiffany at Dr. Chaudhary office as there was concerns about patient's heart rate dropping in the evening and medications to be prescribed Dr. Cahudhary advised to lower metoprolol to 25 daily but continue the amiodarone dose. Patient has had no concerns overnight and feels fine and would like to discharge today. Patient to follow-up with Dr. Chaudhray outpatient Code(s): I48.0 - PAROXYSMAL ATRIAL FIBRILLATION (2) Weakness Current Visit: Yes Status: Acute Assessment & Plan: - PT eval- at [facility] per PT - CBC, CMP reviewed - Consider placement - Flu/COVID/RSV pending 01/03 - Patient was able to work with PT yesterday and today and patient is doing very well today. Code(s): R53.1 - WEAKNESS (3) Vomiting Current Visit: Yes Status: Acute Assessment & Plan: - Antiemetic 01/02 - Resolved Code(s): R11.10 - VOMITING, UNSPECIFIED (4) Hypertension Current Visit: No Status: Chronic Assessment & Plan: - Continue home meds Code(s): I10 - ESSENTIAL (PRIMARY) HYPERTENSION (5) COPD (chronic obstructive pulmonary disease) Current Visit: No Status: Chronic Assessment & Plan: - RA 99% - CXR negative for acute findings - Not in acute exacerbation (6) Dementia Current Visit: No Status: Chronic Assessment & Plan: - Noted - Adds to complexity - Consider placement- refused Code(s): F03.90 - UNSP DEMENTIA, UNSP SEVERITY, WITHOUT BEH/PSYCH/MOOD/ANX (7) History of stroke Current Visit: No Status: Chronic Assessment & Plan: - Continue Pradaxa Code(s): Z86.73 - PRSNL HX OF TIA (TIA), AND CEREB INFRC W/O RESID DEFICITS (8) Hypothyroid Current Visit: No Status: Chronic Assessment & Plan: - TSH WNL - Continue synthroid Code(s): E03.9 - HYPOTHYROIDISM, UNSPECIFIED (9) CKD (chronic kidney disease) Current Visit: Yes Status: Chronic Assessment & Plan: - CMP reviewed - Creat at baseline D/C plan : > 37 minutes Code(s): N18.9 - CHRONIC KIDNEY DISEASE, UNSPECIFIED - Discharge Discharge Date: 01/03/25 Disposition: Home, Self-Care Condition: Stable Prescriptions: New Amiodarone HCl 200 mg [Cordarone 200 MG] 200 mg PO BID 14 Days #28 tablet Metoprolol Succinate 25 mg Xl* [Toprol-Xl 25MG Tablets] 25 mg PO DAILY 30 Days #30 tablet Amiodarone HCl 200 mg [Cordarone 200 MG] 200 mg PO DAILY 30 Days #30 tab Continue Hydrochlorothiazide 25 mg [hydroDIURIL 25 MG] 25 mg PO DAILY Aspirin EC 81 mg [Ecotrin 81 mg] 81 mg PO DAILY Bupropion HCl Xl 150 mg [Wellbutrin XL 150 MG] 300 mg PO DAILY Donepezil HCl [Aricept] 10 mg PO DAILY Levothyroxine Sodium 150 Mcg [Synthroid 150 Mcg] 100 mcg PO DAILY Albuterol Common Canister [Ventolin Common Canister] 2 puff IH Q4H PRN PRN 30 Days #1 inh PRN Reason: Shortness Of Breath/Wheezing Spironolactone [Aldactone] 50 mg PO DAILY Dabigatran Etexilate Mesylate [Dabigatran Etexilate] 150 mg PO BID Diclofenac Sodium [Arthritis Pain] 2 g TOP QID Discontinued Metoprolol Succinate [Toprol Xl] 50 mg PO DAILY Instructions: Amiodarone, Metoprolol, Atrial fibrillation - Discharge instructions Additional Instructions[facility] WILL CALL YOU TO ARRANGE A TIME TO COME SEE YOU. THEIR PHONE NUMBER IS [phone] IF YOU NEED ANYTHING PRIOR TO THEIR VISIT amiodarone 200 mg twice a day for 2 weeks and then changed to 1 tablet daily thereafter. Stop Cardizem daily and continue metoprolol daily. Follow up with: GRAY SCHULER MD [Primary Care Provider, FAMILY PRACTICE] - 01/09/25 11:00 am LAKIA AL PA [NON-STAFF PHY W/O PRIVILEGES, UNKNOWN] - 01/10/25 10:15 am Referral Note: [facility] office- Cardiology Forms: Discharge Instructions
[2025-01-03 10:38] VITALS: BP 117/56; PULSE 51; O2SAT 92
== END 2025-01-03 13:30 | disposition home health service (06) ==
LOC: ED 11:54 → MED SURG 14:52
PROVIDERS: ADMIT Internal Medicine; ATTEND Internal Medicine
DX: I48.0 Paroxysmal atrial fibrillation (principal); R53.1 Weakness; R11.10 Vomiting, unspecified; J44.9 Chronic obstructive pulmonary disease, unspecified; F03.90 Unspecified dementia, unspecified severity, without behavioral disturbance, psychotic disturbance, mood disturbance, and anxiety; Z86.73 Personal history of transient ischemic attack (TIA), and cerebral infarction without residual deficits; E03.9 Hypothyroidism, unspecified; I12.9 Hypertensive chronic kidney disease with stage 1 through stage 4 chronic kidney disease, or unspecified chronic kidney disease; N18.9 Chronic kidney disease, unspecified; Z79.899 Other long term (current) drug therapy; Z85.3 Personal history of malignant neoplasm of breast; Z79.01 Long term (current) use of anticoagulants
CPT/HCPCS: 36415; 71045; 80048; 80053; 83735; 84443; 84484; 85025; 87637; 93005; 93041; 93306; 94760; 96374; 97162; 97530; 99285; Q3014